=== PATIENT | female | born 1965 | race Caucasian/White ===

== ENCOUNTER 2021-03-22 19:46 | Inpatient (IN) | payer MEDICARE, SELFPAY ==
--- NOTE | 2021-03-22 19:52 | ECG_ITS ---
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 Measurements Intervals Douglas Rate: 95 P: 29 UT: 154 QRS: -3 QRSD: 89 T: 87 QT: 391 QTc: 493 Interpretive Statements SINUS RHYTHM POSSIBLE ANTERIOR MYOCARDIAL INFARCTION [30 ms Q WAVE IN V3/V4, OR R < 0.2 mV IN V4], PROBABLY OLD No previous ECG available for comparison Electronically Signed On 03-22-2021 21:33:58 CDT by Kirstie Mendoza M.D. [id number]
--- NOTE | 2021-03-22 19:52 | XRR_ITS ---
PROCEDURE INFORMATION: Exam: XR Chest Exam date and time: 03/22/2021 7:52 PM Age: 55 years old Clinical indication: Shortness of breath; Additional info: SOB TECHNIQUE: Imaging protocol: XR of the chest. Views: 1 view. COMPARISON: No relevant prior studies available. FINDINGS: Lungs: Patchy ground-glass opacities in both lungs. No focal consolidation. Pleural spaces: Unremarkable. No pleural effusion. No pneumothorax. Heart/Mediastinum: Unremarkable. No cardiomegaly. Bones/joints: Unremarkable. XR/XR chest 1V portable [id number] IMPRESSION: 1. Ground-glass opacities in both lungs could represent pulmonary edema or multilobar pneumonia.
[2021-03-22 19:55] VITALS: BP 164/102; PULSE 98; RESP 20; TEMP 36.6; O2SAT 95; BMI 35.2
--- NOTE | 2021-03-22 19:55 | W.ED.SOB ---
HPI - SOB/Dyspnea General: Chief Complaint: COVID symptoms Stated Complaint: SOB Time Seen by Provider: 03/22/21 19:51 Source: patient and EMS Mode of arrival: EMS Limitations: no limitations History of Present Illness: HPI Narrative: 55-year-old female with history of diabetes states she was diagnosed with Covid on Saturday. States she is feeling much worse today. States she has felt nauseous and weak and has had some vomiting. Patient called EMS due to shortness of breath. Her pulse ox was in the low 80s when they arrived they placed her on 3 L of oxygen. Her blood glucose is reading is high as well. She had fever and body aches and generalized weakness. Denies any worsening improving factors. Associated symptoms: Reports fever(s), nausea and vomiting; Deny chest pain Review of Systems Const: Reports: fever(s), chills, body aches and change in appetite Eyes: Denies: blurry vision or eye discomfort ENMT: Denies: throat pain or dental pain Card: Denies: chest pain Resp: Reports: dyspnea and non-productive cough GI: Reports: nausea and vomiting : Denies: dysuria Musc: Denies: neck pain or back pain Skin/Breast: Denies: rash Neuro: Denies: headache(s) Psych: Denies: depression Skyler/Lymph: Denies: easy bruising All/Imm: Denies: urticaria PFSH ED PFSH: Medical History (Updated 03/22/21 @ 21:41 by Palmira Frost MD) Diabetes GERD (gastroesophageal reflux disease) Hyperlipidemia Hypothyroidism Surgical History H/O esophagogastroduodenoscopy H/O removal of cyst H/O tubal ligation Hx of cholecystectomy Family History Grandmother Cancer Denies family history of Diabetes CAD (coronary artery disease) Anesthesia complication Bleeding disorder Hypertension Stroke Social History Smoking and tobacco status: never smoked Alcohol intake: never Household members: spouse Marital status: Current occupational status: disabled History of recent travel: Yes ([place]) Physical Exam Const: COMMON NORMALS: no acute distress and patient oriented x3 GENERAL APPEARANCE: ill appearing HENMT: COMMON NORMALS: normocephalic and atraumatic HEAD & SCALP: normocephalic and atraumatic Eye: COMMON NORMALS: Equal, round and reactive pupils present and EOMs intact bilaterally PUPIL: Yes Equal, round and reactive pupils present Neck/C-Spine: COMMON NORMALS: full ROM and supple Chest: COMMONS NORMALS: normal inspection of the chest and normal palpation of entire chest wall Resp: COMMON NORMALS: normal respiratory effort, No retractions, No use of accessory muscles and clear to auscultation bilaterally AUSCULTATION: clear to auscultation bilaterally and rales Cardio: COMMON NORMALS: regular rate, regular rhythm and No murmurs present (Cardio) RATE: regular rate RHYTHM: regular rhythm GI: COMMON NORMALS: Normal to inspection, nondistended, normoactive bowel sounds present, Soft to palpation, non-tender and no masses PALPATION: Yes Soft to palpation Extremity: COMMON NORMALS: normal to inspection and full ROM Neuro: COMMON NORMALS: patient oriented x3, moves all extremities and no focal motor deficits Psych: COMMON NORMALS: mental status grossly normal, Normal thought process present and cooperative THOUGHT PROCESS: Normal thought process present Skin: COMMON NORMALS: no rashes or lesions noted and no wounds GENERAL SKIN EXAM: no rashes or lesions noted Course Vital Signs: Vital signs: Vital Signs Temperature 97.8 F 03/22/21 19:55 Pulse Rate 91 03/22/21 21:25 Respiratory Rate 22 H 03/22/21 21:25 Blood Pressure 154/84 03/22/21 21:25 Pulse Oximetry 94 03/22/21 21:25 MDM - SOB/Dyspnea MDM Narrative: Medical decision making narrative: Patient presents here with COVID-19 pneumonia likely causing her hypoxia. Patient is also in DKA with an elevated blood sugar. Patient started on an insulin drip. Patient's doing well here on 3 L of oxygen. I spoke to the hospitalist will admit to the ICU at this time. Lab Data: Labs: Lab Results 03/22/21 03/22/21 03/22/21 Range/Units 19:02 19:02 19:02 WBC 8.4 (4.0-10.0) 10^3/ uL RBC 5.00 (4.1-5.3) 10^6/u L Hgb 13.7 (11.5-15.3) g/dL Hct 45.3 (37.0-47.0) % MCV 90.6 (81-99) fL MCH 27.4 L (28.0-34.0) pg MCHC 30.2 (30.0-36.0) g/dL RDW 14.8 (12.1-15.1) % Plt Count 546 H (130-400) 10^3/c mm MPV 10.4 (7.4-10.4) fL Neut % (Auto) 88.1 % Lymph % (Auto) 5.2 % Cooper % (Auto) 4.4 % Eos % (Auto) 0.0 % Baso % (Auto) 0.4 % Neut # (Auto) 7.44 (1.8-7.7) 10^3/u L Lymph # (Auto) 0.4 L (0.8-4.8) 10^3/u L Cooper # (Auto) 0.4 (0.2-0.9) 10^3/u L Eos # (Auto) 0.0 (0.0-0.8) 10^3/u L Baso # (Auto) 0.0 (0.0-0.1) 10^3/u L Nucleated RBC % (a uto) 0 % Nucleated RBCs # 0.0 /100WBC Specimen Type Sample Site ABG pH (7.35-7.45) ABG pCO2 (35-45) mmHg ABG pO2 (80.0-100.0) mmH g ABG HCO3 (22-26) mmol/L ABG Base Excess (-2.0-2.0) mmol/ L Smith Test Hematocrit (37-47) % O2 Delivery Device O2 Liters/Min % FiO2 % [employer] ID Sodium 135 L (136-145) mmol/L Potassium 5.1 (3.5-5.1) mmol/L Chloride 91 L (98-107) mmol/L Carbon Dioxide 21 L (22-29) mmol/L Anion Gap 28.1 H (5-19) BUN 42 H (6-20) mg/dL Creatinine 1.1 H (0.5-0.9) mg/dL GFR Calculation 51.8 L (90-130) mL/min Glucose 934 H* (65-115) mg/dL POC Glucose (70-110) mg/dL Calculated Osmolal ity 337 H (285-295) mOsm/k g Lactic Acid (0.5-2.2) mmol/L Calcium 9.1 (8.5-10.5) mg/dL Total Bilirubin 0.5 (0.15-1.2) mg/dL AST 11 (0-32) U/L ALT 13 (0-33) U/L Alkaline Phosphata se 115 H (35-105) IU/L C-Reactive Protein 74.8 H (0.0-4.9) mg/L NT-Pro-B Natriuret Pep 584 H (0-125) pg/mL Total Protein 7.8 (6.6-8.7) g/dL Albumin 2.7 L (3.5-5.2) g/dL Globulin 5.1 H (1.3-4.6) g/dL Serum Ketones Positive H (Negative) 03/22/21 03/22/21 03/22/21 Range/Units 20:05 20:05 20:29 WBC (4.0-10.0) 10^3/ uL RBC (4.1-5.3) 10^6/u L Hgb (11.5-15.3) g/dL Hct (37.0-47.0) % MCV (81-99) fL MCH (28.0-34.0) pg MCHC (30.0-36.0) g/dL RDW (12.1-15.1) % Plt Count (130-400) 10^3/c mm MPV (7.4-10.4) fL Neut % (Auto) % Lymph % (Auto) % Cooper % (Auto) % Eos % (Auto) % Baso % (Auto) % Neut # (Auto) (1.8-7.7) 10^3/u L Lymph # (Auto) (0.8-4.8) 10^3/u L Cooper # (Auto) (0.2-0.9) 10^3/u L Eos # (Auto) (0.0-0.8) 10^3/u L Baso # (Auto) (0.0-0.1) 10^3/u L Nucleated RBC % (a uto) % Nucleated RBCs # /100WBC Specimen Type Arterial Sample Site Radial, right ABG pH 7.37 (7.35-7.45) ABG pCO2 33.2 L (35-45) mmHg ABG pO2 74.4 L (80.0-100.0) mmH g ABG HCO3 19.3 L (22-26) mmol/L ABG Base Excess -5.0 L (-2.0-2.0) mmol/ L Smith Test Pos Hematocrit 40.8 (37-47) % O2 Delivery Device Nc O2 Liters/Min 4.0 % FiO2 36.0 % [employer] ID glc Sodium (136-145) mmol/L Potassium (3.5-5.1) mmol/L Chloride (98-107) mmol/L Carbon Dioxide (22-29) mmol/L Anion Gap (5-19) BUN (6-20) mg/dL Creatinine (0.5-0.9) mg/dL GFR Calculation (90-130) mL/min Glucose (65-115) mg/dL POC Glucose > 600 H* (70-110) mg/dL Calculated Osmolal ity (285-295) mOsm/k g Lactic Acid 2.9 H (0.5-2.2) mmol/L Calcium (8.5-10.5) mg/dL Total Bilirubin (0.15-1.2) mg/dL AST (0-32) U/L ALT (0-33) U/L Alkaline Phosphata se (35-105) IU/L C-Reactive Protein (0.0-4.9) mg/L NT-Pro-B Natriuret Pep (0-125) pg/mL Total Protein (6.6-8.7) g/dL Albumin (3.5-5.2) g/dL Globulin (1.3-4.6) g/dL Serum Ketones (Negative) Imaging Data^: CXR: Attestation: I personally reviewed and interpreted this imaging study as follows: Radiologist's impression: [address] [address] XRay Report Signed Patient: Tayler Ramires Unit #: [id number] : 1965 Age/Sex: 55 / F ADM Date: 03/22/21 Loc: ER Room/Bed: Attending Dr: Ordering Provider/Ordering MD: Palmira Frost MD Date of Service: 03/22/21 Procedure(s): XR chest 1V portable [id number] Accession Number(s): [id number] Report Number: [id number] PROCEDURE INFORMATION: Exam: XR Chest Exam date and time: 03/22/2021 7:52 PM Age: 55 years old Clinical indication: Shortness of breath; Additional info: SOB TECHNIQUE: Imaging protocol: XR of the chest. Views: 1 view. COMPARISON: No relevant prior studies available. FINDINGS: Lungs: Patchy ground-glass opacities in both lungs. No focal consolidation. Pleural spaces: Unremarkable. No pleural effusion. No pneumothorax. Heart/Mediastinum: Unremarkable. No cardiomegaly. Bones/joints: Unremarkable. XR/XR chest 1V portable [id number] IMPRESSION: 1. Ground-glass opacities in both lungs could represent pulmonary edema or multilobar pneumonia. Dictated By: Ricardo Carr Signed By: Ricardo Carr Signed Date/Time: 03/22/212117 EKG Data^: EKG 1: Attestation: I personally reviewed and interpreted this EKG as follows: EKG Interpretation Date: 03/22/21 EKG interpretation time: 20:12 Interpretation: nsr hr [address] or t wave abnormalities qrs 89 qtc 444 Critical Care Time Critical Care Time: Critical Care Time: Yes Total Critical Care Time: 36 Attestation: This case had a high probability of a clinically significant, sudden, or life threatening deterioration of this patient's condition which required my full and direct attention, intervention and personal management. Discharge Plan Discharge Patient Disposition: Admitted As Inpatient Clinical Impression: COVID-19, DKA (diabetic ketoacidoses) Condition: Stable Coding Level of Care Code ED Despatching And Receiving Clerk for Chg Fwd Exam Comprehensive
[2021-03-22] MEDS: dexamethasone 4 mg/mL INJ 10 MG IVP (20:02)
[2021-03-22 20:11] LABS: Glucose Point of Care > 600 mg/dL (70-110)
[2021-03-22 20:12] LABS: Basophils % 0.4 %; Hematocrit 45.3 % (37.0-47.0); Hemoglobin 13.7 g/dL (11.5-15.3); Lymphocytes # 0.4 10^3/uL (0.8-4.8); Lymphocytes % 5.2 %; Mean Corpuscular HGB Conc 30.2 g/dL (30.0-36.0); Mean Corpuscular Hemoglobin 27.4 pg (28.0-34.0); Mean Corpuscular Volume 90.6 fL (81-99); Mean Platelet Volume 10.4 fL (7.4-10.4); Monocytes # 0.4 10^3/uL (0.2-0.9); Monocytes % 4.4 %; Neutrophils # 7.44 10^3/uL (1.8-7.7); Neutrophils % 88.1 %; Nucleated Red Blood Cells % 0 %; Platelet Count 546 10^3/cmm (130-400); Red Cell Distribution Width 14.8 % (12.1-15.1); White Blood Count 8.4 10^3/uL (4.0-10.0)
[2021-03-22 20:21] VITALS: O2SAT 98
[2021-03-22] MEDS: insulin regular-human 100 units/1 mL 10 UNIT IVP (20:32)
[2021-03-22 20:35] LABS: Lactic Sepsis W/Reflex 2.9 mmol/L (0.5-2.2)
[2021-03-22 20:41] LABS: ABG PCO2 33.2 mmHg (35-45); ABG PH Result 7.37 (7.35-7.45); Arterial Blood Gas Hematocrit 40.8 % (37-47); Blood Gas Allen Test Pos; Blood Gas Operator Identificat glc; Blood Gas Sample Site Radial, right; Blood Gas Sample Type Arterial; HCO3 ABG 19.3 mmol/L (22-26); Oxygen Device NC; PO2 ABG 74.4 mmHg (80.0-100.0)
[2021-03-22 20:50] LABS: Alanine Aminotransferase 13 U/L (0-33); Albumin Level 2.7 g/dL (3.5-5.2); Alkaline Phosphatase 115 IU/L (35-105); Anion Gap 28.1 (5-19); Aspartate Amino Transferase 11 U/L (0-32); Blood Urea Nitrogen 42 mg/dL (6-20); C Reactive Protein 74.8 mg/L (0.0-4.9); Calcium 9.1 mg/dL (8.5-10.5); Carbon Dioxide 21 mmol/L (22-29); Chloride 91 mmol/L (98-107); Globulin 5.1 g/dL (1.3-4.6); Glomerular Filtration Rate 51.8 mL/min (90-130); NT Pro B Type Natriuretic Pept 584 pg/mL (0-125); Potassium 5.1 mmol/L (3.5-5.1); Sodium 135 mmol/L (136-145); Total Bilirubin 0.5 mg/dL (0.15-1.2); Total Protein 7.8 g/dL (6.6-8.7)
[2021-03-22 20:58] LABS: Osmolality Calculated 337 mOsm/kg (285-295)
[2021-03-22 21:01] LABS: Glucose 934 mg/dL (65-115)
[2021-03-22] MEDS: sodium chloride 0.9% 1,000 ML 999 ML IV (21:11)
[2021-03-22 21:13] LABS: Ketone (Acetest) Serum Positive (Negative)
[2021-03-22] MEDS: insulin regular-human 250 UNIT in sodium chloride 0.9% 250 ML 8 UNIT IV (21:13)
[2021-03-22 21:25] VITALS: BP 154/84; PULSE 91; RESP 22; O2SAT 94
--- NOTE | 2021-03-22 21:39 | PM.HP ---
Providers/Chief Complaint Admitting Physician: Noelle Fisher MD Chief Complaint: SOB History of Present Illness Tayler Ramires is a 55 year old female with a past medical history of diabetes mellitus, hyperlipidemia, hypothyroidism, and vaccinated for COVID-19 presents today with worsening shortness of breath after being diagnosed with Covid on Saturday. Results of Covid testing are not available directly for review as testing was performed with her primary care provider. Upon presentation she has a new oxygen requirement of 4 L/min. Chest x-ray showing bilateral pneumonitis. She is also noted to have HHS with blood sugar in excess of 900, positive anion gap, positive serum ketones. She is currently mentating well. ABG without metabolic acidosis at this time. Ros positive for fever, lethargy, myalgias. Denies any chest pain, palpitations at this time. Review of Systems General: Reports: 10 or more systems reviewed and unremarkable except in HPI and below Const: Reports: fever(s), chills and body aches Eyes: Denies: change in vision, blurry vision or photophobia ENMT: Denies: throat pain, enlarged tonsils, odynophagia or nasal congestion Card: Reports: dyspnea on exertion and orthopnea; Denies: chest pain, palpitations, irregular heart rhythm, edema, swelling of feet/ankles, lightheadedness or pre-syncope Resp: Reports: dyspnea and non-productive cough; Denies: wheezing, stridor, pain on inspiration, change in phlegm color, hemoptysis or chest congestion GI: Denies: abdominal pain, nausea, vomiting, hematemesis, coffee ground emesis, dysphagia, heartburn, diarrhea, constipation, GI cramping, change in stool character, hematochezia or melena : Denies: flank pain, difficulty voiding, dysuria, urinary frequency, urinary urgency, urinary hesitancy or hematuria Musc: Denies: neck pain, back pain, extremity pain, joint swelling, joint warmth or deformity Neuro: Denies: headache(s), numbness in extremities, weakness in extremities, sensory changes, difficulty walking, frequent falls, dizziness, vertigo, behavioral changes, Slurred speech present or seizure-like activity Psych: Denies: anxiety, depression, suicidal ideation or homicidal ideation Endo: Denies: polyuria, polydipsia, tired all the time, cold intolerance or hot flashes Skyler/Lymph: Denies: easy bruising or easy bleeding Medications/Allergies Home Medications Medication Instructions Recorded Confirmed Last Taken Type esomeprazole magnesium 40 mg 40 mg PO DAILY 03/22/20 03/22/21 Unknown History capsule,delayed release insulin aspar prt-insulin aspart 35 unit SUBCUT QAM ml 03/22/20 03/22/21 Unknown History 100 unit/mL (70-30) subcutaneous soln levothyroxine 25 mcg tablet 25 mcg PO DAILY 03/22/20 03/22/21 03/22/21 History lovastatin 10 mg tablet 10 mg PO DAILY 03/22/20 03/22/21 Unknown History glipizide 5 mg PO BID 03/22/21 03/22/21 03/22/21 History Allergies Allergy/AdvReac Type Severity Reaction Status Date / Time doxycycline Allergy ALGY-Rash Verified 04/12/20 15:03 PFSH Acute PFSH: Medical History (Updated 03/22/21 @ 21:58 by Noelle Fisher MD) Diabetes GERD (gastroesophageal reflux disease) Hyperlipidemia Hypothyroidism Surgical History H/O esophagogastroduodenoscopy H/O removal of cyst H/O tubal ligation Hx of cholecystectomy Family History Grandmother Cancer Denies family history of Diabetes CAD (coronary artery disease) Anesthesia complication Bleeding disorder Hypertension Stroke Social History Smoking and tobacco status: never smoked Alcohol intake: never Household members: spouse Marital status: Current occupational status: disabled History of recent travel: Yes ([place]) Vitals/I&O/Wt Last Vital Signs Temp 97.8 F 03/22/21 19:55 Pulse 91 03/22/21 21:25 Resp 22 H 03/22/21 21:25 BP 154/84 03/22/21 21:25 Pulse Ox 94 03/22/21 21:25 Weight last 48 hrs Weight 81.647 kg Physical Exam Narrative: EXAM NARRATIVE: GEN: Aake, alert and oriented, no acute distress HEENT: NC in place, NC/AT CVS: Normal S1-S2, no murmurs rubs or gallops. Respiratory system: Clear to auscultation bilaterally Abdominal exam soft nondistended nontender bowel sounds positive. Extremities no edema clubbing or cyanosis. Data : 03/22/21 19:02 03/22/21 19:02 Micro: Microbiology 03/22/21 20:20 Blood Culture - Preliminary Blood SPECIMEN COLLECTED 03/22/21 20:05 Blood Culture - Preliminary Blood SPECIMEN COLLECTED A&P Assessment and plan (1) COVID-19: COVID-19 pneumonia with bilateral pneumonitis as seen on chest x-ray Elevated CRP at 74.8. New oxygen requirement via nasal cannula at 4 L/min Start remdesivir, dexamethasone 6 mg IV every 24 hours Steroids likely to worsen HHS, however given moderate disease, new oxygen requirement and high likelihood of progression would continue steroids alongside of insulin drip. Check inflammatory markers including LDH ferritin D-dimer, trend CRP Supplemental O2 to keep saturation greater than 92% Advair twice daily, Spiriva daily, albuterol as needed Incentive spirometry, flutter valve encouraged Added Robitussin Tessalon Perles for cough Status: Acute (2) Hyperosmolar hyperglycemic state (HHS): Blood sugar greater than 900, anion gap 28, positive serum ketones, ABG without significant metabolic acidosis, overall picture consistent with HHS. Start insulin drip per DKA/HHS protocol in the ICU. Currently received 10 units of regular insulin IV push Potassium currently at 5.1, dropped to less than 5 we will add potassium to IV fluids Normal saline at 100 cc an hour for now, once blood sugar drops to less than 250 switch to D5 normal saline Status: Acute (3) Hypothyroidism: Continue levothyroxine 25 mics p.o. daily Status: Acute Qualifiers: Hypothyroidism type: unspecified Qualified Code(s): E03.9 - Hypothyroidism, unspecified (4) Hyperlipidemia: Continue statins Status: Acute Qualifiers: Hyperlipidemia type: unspecified Qualified Code(s): E78.5 - Hyperlipidemia, unspecified Additional A&P Information DVT prophylaxis Lovenox. SCDs Full code PUD prophylaxis Protonix 40 mg daily Attestations Medical Necessity Statement*: Greater than 2 midnight will be needed for management of COVID-19 pneumonia, HHS, patient currently needing ICU level of care, high risk of progression to severe disease. Critical Care Time: The high probability of a clinically significant, sudden or life threatening deterioration of the patient's [respiratory, endocrine] system(s) required my full and direct attention, intervention and personal management. The critical care time is as shown. This time is in addition to time spent performing any reported procedures but includes the following: [x] Data and vital sign review and interpretation [x] Patient assessment, examination and intervention [x] Documentation [x] Medication orders and management Critical Care Time (min): 60 Coding Level of Care Code Acute Press Supervisor for Chg Fwd Diagnoses COVID-19 U07.1 Hyperosmolar hyperglycemic state (HHS) E11.00; E11.65 Hypothyroidism E03.9 Hypothyroidism type: unspecified Hyperlipidemia E78.5 Hyperlipidemia type: unspecified
[2021-03-22 21:56] LABS: Reflex Lactate Order REFLEX LACTIC ORDERD
[2021-03-22 22:09] LABS: Lactate Dehydrogenase 451 U/L (135-214)
[2021-03-22 22:11] LABS: Estmated Average Glucose 326
[2021-03-22 22:20] LABS: D Dimer 1.36 ug/mIFEU (0-0.59)
[2021-03-22 22:23] LABS: Troponin T (5th) Once 16 ng/L (0-10)
[2021-03-22 22:24] LABS: Ferritin 2004 ng/mL (15-150)
[2021-03-22 22:28] LABS: Add Urine Culture? Yes; Add Urine Microscopic? YES; Bacteria Urine TRACE /hpf; Bilirubin Urine Neg (Negative); Blood Urine 3+ (Negative); Glucose Urine UA 4+ (Normal); Ketones Urine 1+ (Negative); Leukocyte Esterase Urine Negative (Negative); Nitrate Urine Negative (Negative); Protein Urine 1+ (Negative); RBC Urine 0-4 /hpf (0-2); Specific Gravity, Urine 1.005 (1.005-1.030); Urine Appearance Clear (CLEAR); Urine Color Yellow (Yellow); Urobilinogen Urine Norm (Negative); WBC Urine 0-4 /hpf (0-5); pH Urine 5 (5-7)
[2021-03-22 22:31] LABS: Procalcitonin 0.22 ng/mL (0-0.5)
[2021-03-22] MEDS: remdesivir 200 MG in sodium chloride 0.9% (100 ml) 100 ML 100 MG IV (22:46)
[2021-03-22 23:01] LABS: Lactic Acid level (Lactate) 2.3 mmol/L (0.5-2.2)
[2021-03-22 23:16] VITALS: BP 166/97; PULSE 91; RESP 19; O2SAT 96
[2021-03-22 23:35] LABS: Glucose Point of Care 528 mg/dL (70-110)
[2021-03-23] VITALS (30 sets, daily range): BP systolic 101–168; BP diastolic 53–106; PULSE 48–94; RESP 3–32; TEMP 36.8; O2SAT 89–99
[2021-03-23] MEDS: dexamethasone 4 mg/mL INJ 6 MG IVP (03:39)
[2021-03-23] MEDS: enoxaparin 40 mg/0.4 mL Syringe SUBCUT ×2 (03:39→12:24)
[2021-03-23] MEDS: cefTRIAXone 1,000 MG in sodium chloride 0.9% (plus) 100 ML 200 MG IV (03:39)
[2021-03-23] MEDS: sodium chloride 0.9% 1,000 ML 100 ML IV (03:41)
[2021-03-23 05:12] LABS: Basophils % 0.5 %; Hematocrit 38.9 % (37.0-47.0); Hemoglobin 12.1 g/dL (11.5-15.3); Lymphocytes # 0.3 10^3/uL (0.8-4.8); Lymphocytes % 4.5 %; Mean Corpuscular HGB Conc 31.1 g/dL (30.0-36.0); Mean Corpuscular Hemoglobin 27.7 pg (28.0-34.0); Mean Platelet Volume 10.8 fL (7.4-10.4); Monocytes # 0.2 10^3/uL (0.2-0.9); Monocytes % 2.1 %; Neutrophils # 7.01 10^3/uL (1.8-7.7); Neutrophils % 91.7 %; Nucleated Red Blood Cells % 0 %; Platelet Count 422 10^3/cmm (130-400); Red Blood Count 4.37 10^6/uL (4.1-5.3); Red Cell Distribution Width 14.6 % (12.1-15.1); White Blood Count 7.6 10^3/uL (4.0-10.0)
[2021-03-23 05:35] LABS: Lactic Sepsis W/Reflex 2.9 mmol/L (0.5-2.2)
[2021-03-23] MEDS: dextrose 5%-sod chloride 0.45% 1,000 ML 100 ML IV ×2 (06:04→14:46)
--- NOTE | 2021-03-23 06:48 | PC.NURSE ---
arrived on unit approximately 0200, no c/o, AO follows commands. Dr. Fisher gave v.o. to start D5 1/2 NS once glucose less than 250
--- NOTE | 2021-03-23 06:53 | PC.NURSE ---
This nurse called lab to ask about chemisty that was drawn by this nurse at approximately 0445, lab informed this nurse it was hemolyzed, this nurse informed lab they would need to draw
[2021-03-23 06:57] LABS: Reflex Lactate Order REFLEX LACTIC ORDERD
[2021-03-23] MEDS: ascorbic acid 500 mg Tablet PO ×2 (08:36→17:16)
[2021-03-23] MEDS: acetaminophen 325 mg Tablet 650 MG PO ×3 (08:36→21:07)
[2021-03-23] MEDS: atorvastatin 40 mg Tablet 20 MG PO (08:36)
[2021-03-23] MEDS: benzonatate 100 mg Capsule PO ×3 (08:36→21:07)
[2021-03-23] MEDS: levothyroxine 25 mcg Tablet PO (08:36)
[2021-03-23] MEDS: pantoprazole DR 40 mg Tablet PO (08:36)
[2021-03-23 09:04] LABS: Lactic Acid level (Lactate) 1.9 mmol/L (0.5-2.2)
[2021-03-23 09:05] LABS: Alanine Aminotransferase 10 U/L (0-33); Albumin Level 1.9 g/dL (3.5-5.2); Alkaline Phosphatase 87 IU/L (35-105); Aspartate Amino Transferase 10 U/L (0-32); Blood Urea Nitrogen 37 mg/dL (6-20); Calcium 8.1 mg/dL (8.5-10.5); Carbon Dioxide 24 mmol/L (22-29); Chloride 112 mmol/L (98-107); Globulin 4.4 g/dL (1.3-4.6); Glomerular Filtration Rate 87.2 mL/min (90-130); Glucose 162 mg/dL (65-115); Osmolality Calculated 314 mOsm/kg (285-295); Sodium 146 mmol/L (136-145); Total Bilirubin 0.2 mg/dL (0.15-1.2); Total Protein 6.3 g/dL (6.6-8.7)
[2021-03-23 09:06] LABS: Anion Gap 14.1 (5-19)
[2021-03-23 09:07] LABS: Potassium 4.1 mmol/L (3.5-5.1)
[2021-03-23 09:12] LABS: Glucose Point of Care 284 mg/dL (70-110)
[2021-03-23 09:12] LABS: Glucose Point of Care 323 mg/dL (70-110)
[2021-03-23 09:12] LABS: Glucose Point of Care 234 mg/dL (70-110)
[2021-03-23 09:12] LABS: Glucose Point of Care 387 mg/dL (70-110)
[2021-03-23 09:12] LABS: Glucose Point of Care 221 mg/dL (70-110)
[2021-03-23 09:13] LABS: Glucose Point of Care 162 mg/dL (70-110)
--- NOTE | 2021-03-23 09:17 | PC.CHAP ---
Pastoral Care Encounter/Spiritual Assessment Type of Contact [] Declined patient services assistant visit [] Patient/Family/Request visit [] Outpatient visit [] Follow-up visit [] Physician referral [] Code/Alert [x] Routine visit [] Staff referral [] Actively dying [] Patient sleeping [] Family support [] [] Out of room [] Palliative care [] [x] Receiving care in room [] Pre-surgical visit [] Trauma [] Long length of stay [x] ICU visit [] Other: Relational/Emotional Strength [] Patient feels connected with others/family/visitors/staff [] Distress [] Loneliness/isolation [] Abandonment Spirituality of Patient [] Person of Ashlee [] Attends Islam of their Ashlee [] Believes in Prayer [] Reads Bible or Episcopalian materials [] There are Spiritual issues to be addressed Pcu Rn Interventions [x] Prayer [] Active listening [] Non-anxious presence [] Spiritual/emotional support [] Crisis/trauma care [] Spiritual counseling [] Bereavement support [] Provided bereavement packet [] Provided Bible/devotional materials [] Provided toy/stuffed animal, coloring book to patient or family member [] Provided Communion [] Anointing/[place] [] Salvation [x] Completed spiritual assessment [] Other: Impact on Illness or Injury [] Angry [] Fearful [] Anxious [] Often cries [] Exhaustion [] Unable to work [] Unable to attend mormonism [] Unable to walk/stand [] Unable to read [] Unable to drive [] Unable to eat/drink [] Unable to sleep [] Unable to be with family [] Patient intubated [] Other: Summary Time spent with patient
--- NOTE | 2021-03-23 09:18 | USCV_ITS ---
Tayler Ramires Age: 55 Gender: F : 1965 Exam Date: 03/23/2021 12:26 Ordering Phys: Rik Hinkle MD Technologist: Exam Location: [facility] Indication: SOB, COVID BP: 138 / 77 HR: 81 Rhythm: Sinus Technical Quality: Adequate MEASUREMENTS (Male / Female) Normal Values 2D ECHO LV Diastolic Diameter PLAX 4.2 cm 4.2 - 5.9 / 3.9 - 5.3 cm LV Systolic Diameter PLAX 2.4 cm IVS Diastolic Thickness 1.0 cm 0.6 - 1.0 / 0.6 - 0.9 cm IVS Systolic Thickness 1.3 cm LVPW Diastolic Thickness 1.0 cm 0.6 - 1.0 / 0.6 - 0.9 cm LVPW Systolic Thickness 1.6 cm LVOT Diameter 2.0 cm LV Ejection Fraction 2D Teich 73.0 % LV Ejection Fraction MOD 2C 70.1 % LV Ejection Fraction 2C AL 70.5 % LA Diameter 3.3 cm LA Width 3.5 cm LA Height 5.0 cm RA Width 3.2 cm RA Height 5.2 cm Aorta at Sinotubular Diameter 1.9 cm DOPPLER AV Peak Velocity 155.0 cm/s LVOT Peak Velocity 97.0 cm/s AV Area Cont Eq vti 1.8 cm squared AV Area Cont Eq pk 1.9 cm squared MV Area PHT 5.0 cm squared Mitral E to A Ratio 1.1 MV E' Velocity 59.0 cm/s Mitral E to MV E' Ratio 14.4 Mitral E to LV E' Lateral Ratio 12.4 Mitral E to LV E' Septal Ratio 17.3 TR Peak Velocity 112.3 cm/s TR Peak Gradient 5.0 mmHg FINDINGS Left Ventricle Normal left ventricular cavity size. Normal left ventricular systolic function. No regional wall motion abnormalities. Left ventricular ejection fraction is estimated at 60 %. Grade I/IV diastolic dysfunction (abnormal relaxation filling pattern), normal to mildly elevated filling pressures. Right Ventricle The right ventricle is normal in size and function. RVSP could not be calculated due to incomplete tricuspid regurgitation velocity profile. Right Atrium The right atrium is normal in size. Left Atrium The left atrium is normal in size. Mitral Valve Structurally normal mitral valve without significant stenosis or prolapse. There is no mitral regurgitation. Aortic Valve Structurally normal aortic valve without significant sclerosis or stenosis. There is no aortic regurgitation. Tricuspid Valve Structurally normal tricuspid valve without significant stenosis or regurgitation. Pulmonic Valve Structurally normal pulmonic valve without significant stenosis. There is no pulmonic regurgitation. Pericardium Normal pericardium without effusion. Aorta Normal ascending aorta dimension. CONCLUSIONS 1-Normal left ventricular cavity size. Normal left ventricular systolic function. No regional wall motion abnormalities. Left ventricular ejection fraction is estimated at 60 %. Grade I/IV diastolic dysfunction (abnormal relaxation filling pattern), normal to mildly elevated filling pressures. 2-There is no pericardial effusion. 3-No significant valve abnormalities. 4-The right ventricle is normal in size and function. RVSP could not be calculated due to incomplete tricuspid regurgitation velocity profile. 5-There is no pericardial effusion. 6-Right atrial pressure is around 5 mm of mercury. 7-There are no prior echocardiogram studies to compare. Everardo Dasilva MD (Electronically Signed) Final Date: 23 March 2021 16:02 S
[2021-03-23 10:09] LABS: Glucose Point of Care 133 mg/dL (70-110)
[2021-03-23 10:09] LABS: Glucose Point of Care 147 mg/dL (70-110)
[2021-03-23 10:36] LABS: Iron 25 ug/dL (37-145); Total Iron Binding Capacity 104 mcg/dl; Unsaturated Iron Binding 79 ug/dL (112-347)
[2021-03-23 10:43] LABS: Procalcitonin 0.16 ng/mL (0-0.5)
[2021-03-23 10:44] LABS: C Reactive Protein 42.2 mg/L (0.0-4.9); Creatine Phosphokinase 55 U/L (26-192); Magnesium 2.3 mg/dL (1.7-2.3); Thyroid Stimulating Hormone 0.62 uIU/mL (0.27-4.20)
[2021-03-23 11:12] LABS: Ferritin 1270 ng/mL (15-150)
[2021-03-23 11:48] LABS: Potassium, Radom Urine 7 mmol/L
[2021-03-23 12:01] LABS: Glucose Point of Care 172 mg/dL (70-110)
[2021-03-23] MEDS: zinc gluconate 50 mg Tablet PO (12:06)
[2021-03-23] MEDS: ondansetron 2 mg/ML SDV 2 mL 4 MG IVP ×2 (12:06→17:42)
[2021-03-23 12:17] LABS: Glucose Point of Care 196 mg/dL (70-110)
[2021-03-23 12:21] LABS: Fibrinogen 692 mg/dL (174-498)
[2021-03-23 12:32] LABS: Urine Random Chloride < 10 mmol/L; Urine Random Sodium 12 mmol/L
[2021-03-23 12:34] LABS: Alanine Aminotransferase 8 U/L (0-33); Albumin Level 1.8 g/dL (3.5-5.2); Alkaline Phosphatase 72 IU/L (35-105); Aspartate Amino Transferase 9 U/L (0-32); Blood Urea Nitrogen 38 mg/dL (6-20); Calcium 7.8 mg/dL (8.5-10.5); Carbon Dioxide 23 mmol/L (22-29); Chloride 110 mmol/L (98-107); Glomerular Filtration Rate 87.2 mL/min (90-130); Glucose 207 mg/dL (65-115); Lactic Sepsis W/Reflex 1.3 mmol/L (0.5-2.2); Osmolality Calculated 313 mOsm/kg (285-295); Sodium 144 mmol/L (136-145); Total Bilirubin 0.2 mg/dL (0.15-1.2); Total Protein 5.8 g/dL (6.6-8.7)
[2021-03-23 13:57] LABS: Glucose Point of Care 238 mg/dL (70-110)
[2021-03-23 15:14] LABS: Glucose Point of Care 192 mg/dL (70-110)
[2021-03-23 15:14] LABS: Glucose Point of Care 213 mg/dL (70-110)
[2021-03-23 15:23] LABS: Alanine Aminotransferase 8 U/L (0-33); Albumin Level 1.6 g/dL (3.5-5.2); Alkaline Phosphatase 71 IU/L (35-105); Blood Urea Nitrogen 36 mg/dL (6-20); Calcium 7.4 mg/dL (8.5-10.5); Carbon Dioxide 19 mmol/L (22-29); Chloride 108 mmol/L (98-107); Globulin 4.1 g/dL (1.3-4.6); Glomerular Filtration Rate 74.7 mL/min (90-130); Glucose 229 mg/dL (65-115); Osmolality Calculated 302 mOsm/kg (285-295); Sodium 138 mmol/L (136-145); Total Bilirubin 0.2 mg/dL (0.15-1.2); Total Protein 5.7 g/dL (6.6-8.7)
[2021-03-23 15:28] LABS: Anion Gap 15.2 (5-19); Aspartate Amino Transferase 14 U/L (0-32); Potassium 4.2 mmol/L (3.5-5.1)
--- NOTE | 2021-03-23 15:38 | P.PN_ITS ---
Subjective Subjective: Interval history: Admitted overnight. H&P and labs appreciated. On examination patient lying comfortably in bed, drowsy, on 5 L oxygen supplementation saturating 96%. Has remained hemodynamically stable overnight. States KUB. N.p.o. for now. Last sodium levels on examination 146, blood glucose down to 170. Currently she is on D5 half NS 100 cc/h, insulin at 4. During the day BMP was monitored and sodium levels came down to 128. Insulin drip postop information sliding-scale. Carb consistent diet was started. Fluid was changed to half NS at 50 cc/h. Vitals/I&O/Wt Last Vital Signs Temp 98.3 F 03/23/21 12:00 Pulse 88 03/23/21 12:07 Resp 18 03/23/21 12:00 BP 118/88 03/23/21 12:00 Pulse Ox 96 03/23/21 12:00 03/23/21 03/23/21 03/23/21 06:59 14:59 22:59 Intake Total 442.367 / 4291.080 7014.317 / 1122.317 Balance 442.367 / 0889.013 8679.317 / 1122.317 Weight last 48 hrs Weight 81.647 kg Physical Exam Narrative: EXAM NARRATIVE: General: Drowsy, AO x3, no acute distress HEENT: NC in place, NC/AT CVS: Normal S1-S2, no murmurs rubs or gallops. Respiratory system: Bilateral normal vesicular breath sounds, occasional rhonchi present all over the lung matamoros Abdominal: Soft, nondistended, nontender,, no organomegaly, bowel sounds positive. Extremities no edema clubbing or cyanosis. Data : 03/23/21 05:00 03/23/21 14:35 Micro: Microbiology 03/23/21 04:55 MRSA Culture - Final Nose 03/22/21 20:12 Legionella Urinary Antigen - Final Urine,Voided 03/22/21 20:12 Bacterial Antigens - Final Urine Kidney 03/22/21 20:20 Blood Culture - Preliminary Blood SPECIMEN COLLECTED 03/22/21 20:05 Blood Culture - Preliminary Blood SPECIMEN COLLECTED A&P Assessment and plan (1) Hypoxia: Status: Acute (2) COVID-19: Status: Acute (3) Hyperosmolar hyperglycemic state (HHS): Status: Acute (4) Hypernatremia: Status: Acute (5) Hypothyroidism: Continue levothyroxine 25 mics p.o. daily Status: Acute Qualifiers: Hypothyroidism type: unspecified Qualified Code(s): E03.9 - Hypothyroidism, unspecified (6) Hyperlipidemia: Continue statins Status: Acute Qualifiers: Hyperlipidemia type: unspecified Qualified Code(s): E78.5 - Hyperlipidemia, unspecified Additional A&P Information Hypoxia secondary to COVID-19 pneumonia: Moderate disease. Oxygen supplementation keeping saturation over 90%. Remdesivir to finish 5-day course. Dexamethasone 6 mg IV daily. Advair, Spiriva. Vitamin C, zinc. Incentive spirometry, flutter valve for pulmonary toilet. Monitor inflammatory markers including LDH, ferritin, ESR, CRP, D-dimer. D-dimer elevated. No CTA. Start patient on full dose Lovenox 1 mg/kg body weight every 12 hourly as per creatinine clearance. Check procalcitonin, MRSA swab, urine Legionella, bacterial antigen. Low probability of superimposed bacterial infection for now. Continue with ceftriaxone started last night. Day 2 today. Hyperosmolar hyperglycemic state: Anion gap closed since last night. Most likely secondary to steroids. Resolved. Insulin sliding scale at high-dose protocol. Start patient on Lantus 35 units daily at home dose. Type 2 diabetes mellitus: Treatment as above. A1c 13. Patient will most likely need to be discharged on higher dose of Lantus. Hypernatremia: Most likely secondary to dehydration from hyperosmolar state. D5 half NS to half NS and sodium level came down to 138. Insulin drip stopped. Switch over to half NS at 50 cc/h. BMP every 4 hours for now. Continue other chronic medication including atorvastatin, levothyroxine, Protonix. Check iron panel, TSH. DVT prophylaxis full dose Lovenox Lovenox. SCDs Full code PUD prophylaxis Protonix 40 mg daily Attestations Medical Necessity Statement*: Requires further hospitalization for management of the COVID-19 pneumonia, hypernatremia, resolving hyperosmolar hyperglycemic state. Critical Care Time: The high probability of a clinically significant, sudden or life threatening deterioration of the patient's [endocrine, pulmonary] system(s) required my full and direct attention, intervention and personal management. The critical care time is as shown. 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
[2021-03-23 16:54] LABS: Glucose Point of Care 218 mg/dL (70-110)
[2021-03-23] MEDS: ferrous gluconate 324 mg Tablet PO (17:16)
[2021-03-23] MEDS: sodium chloride 0.45% 1,000 ML 50 ML IV (17:16)
[2021-03-23] MEDS: remdesivir 100 MG in sodium chloride 0.9% (100 ml) 100 ML IV (18:28)
[2021-03-23 20:04] LABS: Glucose Point of Care 263 mg/dL (70-110)
[2021-03-23 20:05] LABS: Alanine Aminotransferase 8 U/L (0-33); Albumin Level 1.9 g/dL (3.5-5.2); Alkaline Phosphatase 78 IU/L (35-105); Anion Gap 14.9 (5-19); Aspartate Amino Transferase 11 U/L (0-32); Blood Urea Nitrogen 36 mg/dL (6-20); Calcium 7.5 mg/dL (8.5-10.5); Carbon Dioxide 22 mmol/L (22-29); Chloride 105 mmol/L (98-107); Globulin 4.1 g/dL (1.3-4.6); Glomerular Filtration Rate 74.7 mL/min (90-130); Glucose 273 mg/dL (65-115); Osmolality Calculated 304 mOsm/kg (285-295); Potassium 3.9 mmol/L (3.5-5.1); Sodium 138 mmol/L (136-145); Total Bilirubin 0.3 mg/dL (0.15-1.2)
[2021-03-23] MEDS: enoxaparin 80 mg/0.8 mL Syringe SUBCUT (21:08)
[2021-03-23] MEDS: insulin glargine 100 units/1 mL 35 UNIT SUBCUT (21:08)
[2021-03-24] VITALS (24 sets, daily range): BP systolic 115–161; BP diastolic 59–99; PULSE 71–98; RESP 8–24; TEMP 36.4–36.9; O2SAT 92–99
[2021-03-24] MEDS: cefTRIAXone 1,000 MG in sodium chloride 0.9% (plus) 100 ML 200 MG IV (03:12)
[2021-03-24] MEDS: acetaminophen 325 mg Tablet 650 MG PO ×2 (03:12→08:16)
[2021-03-24] MEDS: dexamethasone 4 mg/mL INJ 6 MG IVP (03:22)
[2021-03-24] MEDS: ondansetron 2 mg/ML SDV 2 mL 4 MG IVP ×3 (03:22→18:35)
--- NOTE | 2021-03-24 06:00 | XR_ITS ---
WS: [id number] Portable AP semiupright chest, 03/24/2021 Clinical Data: covid Comparison: Portable chest, 03/22/2021. Findings: The bilateral patchy pulmonary opacities are not changed. The heart size remains the same. Monitor leads are on the chest wall. XR/XR chest 1V portable [id number] Impression: No change in bilateral pulmonary opacities.
[2021-03-24 06:47] LABS: Basophils % 0.4 %; Eosinophils % 0.2 %; Hematocrit 35.2 % (37.0-47.0); Hemoglobin 10.9 g/dL (11.5-15.3); Lymphocytes # 0.5 10^3/uL (0.8-4.8); Lymphocytes % 5.6 %; Mean Corpuscular Hemoglobin 27.1 pg (28.0-34.0); Mean Corpuscular Volume 87.6 fL (81-99); Mean Platelet Volume 9.8 fL (7.4-10.4); Monocytes # 0.3 10^3/uL (0.2-0.9); Monocytes % 3.5 %; Neutrophils % 89.3 %; Nucleated Red Blood Cells % 0 %; Platelet Count 324 10^3/cmm (130-400); Red Blood Count 4.02 10^6/uL (4.1-5.3); Red Cell Distribution Width 14.4 % (12.1-15.1)
[2021-03-24 07:15] LABS: Alanine Aminotransferase 8 U/L (0-33); Albumin Level 1.8 g/dL (3.5-5.2); Alkaline Phosphatase 89 IU/L (35-105); Anion Gap 10.7 (5-19); Aspartate Amino Transferase 10 U/L (0-32); Blood Urea Nitrogen 31 mg/dL (6-20); C Reactive Protein 19.3 mg/L (0.0-4.9); Calcium 7.5 mg/dL (8.5-10.5); Carbon Dioxide 26 mmol/L (22-29); Chloride 107 mmol/L (98-107); Creatine Phosphokinase 66 U/L (26-192); Globulin 3.8 g/dL (1.3-4.6); Glomerular Filtration Rate 74.7 mL/min (90-130); Glucose 200 mg/dL (65-115); NT Pro B Type Natriuretic Pept 390 pg/mL (0-125); Osmolality Calculated 302 mOsm/kg (285-295); Potassium 3.7 mmol/L (3.5-5.1); Sodium 140 mmol/L (136-145); Total Bilirubin 0.2 mg/dL (0.15-1.2); Total Protein 5.6 g/dL (6.6-8.7)
[2021-03-24 07:30] LABS: Erythrocyte Sedimentation Rate 97 mm/hr (0-15)
[2021-03-24 07:59] LABS: Ferritin 970 ng/mL (15-150)
[2021-03-24] MEDS: ferrous gluconate 324 mg Tablet PO ×2 (08:16→18:34)
[2021-03-24] MEDS: zinc gluconate 50 mg Tablet PO (08:16)
[2021-03-24] MEDS: pantoprazole DR 40 mg Tablet PO (08:16)
[2021-03-24] MEDS: ascorbic acid 500 mg Tablet PO (08:16)
[2021-03-24] MEDS: levothyroxine 25 mcg Tablet PO (08:17)
[2021-03-24] MEDS: atorvastatin 40 mg Tablet 20 MG PO (08:17)
[2021-03-24] MEDS: benzonatate 100 mg Capsule PO ×3 (08:17→21:09)
[2021-03-24] MEDS: enoxaparin 80 mg/0.8 mL Syringe SUBCUT ×2 (10:01→21:09)
[2021-03-24 11:12] LABS: Glucose Point of Care 276 mg/dL (70-110)
[2021-03-24] MEDS: insulin glargine 100 units/1 mL 25 UNIT SUBCUT ×2 (11:43→18:39)
--- NOTE | 2021-03-24 14:45 | P.PN_ITS ---
Subjective Subjective: Interval history: No acute events overnight. Patient has remained hemodynamically stable. Currently on examination on 4 L nasal cannula supplementation saturating 94%. Denies any nausea vomiting, headache. Sitting up in chair. Working with incentive spirometry and flutter valve though states not as well as he should be. Vitals/I&O/Wt Last Vital Signs Temp 98.4 F 03/24/21 12:00 Pulse 89 03/24/21 12:00 Resp 18 03/24/21 12:00 BP 143/99 03/24/21 12:00 Pulse Ox 94 03/24/21 12:00 03/23/21 03/24/21 03/24/21 22:59 06:59 14:59 Intake Total 300 / 1422.317 100 / 1522.317 0 / 0 Output Total 800 / 800 Balance 300 / 1422.317 100 / 1522.317 -800 / -800 Weight last 48 hrs Weight 81.647 kg Physical Exam Narrative: EXAM NARRATIVE: General: Drowsy, AO x3, no acute distress HEENT: NC in place, NC/AT CVS: Normal S1-S2, no murmurs rubs or gallops. Respiratory system: Bilateral normal vesicular breath sounds, occasional rhonchi present all over the lung matamoros Abdominal: Soft, nondistended, nontender,, no organomegaly, bowel sounds positive. Extremities no edema clubbing or cyanosis. Data : 03/24/21 05:54 03/24/21 05:54 Micro: Microbiology 03/22/21 20:12 Urine Culture - Preliminary Urine,Clean Catch Yeast 03/22/21 20:20 Blood Culture - Preliminary Blood NEGATIVE TO DATE 03/22/21 20:05 Blood Culture - Preliminary Blood NEGATIVE TO DATE 03/23/21 04:55 MRSA Culture - Final Nose 03/22/21 20:12 Legionella Urinary Antigen - Final Urine,Voided 03/22/21 20:12 Bacterial Antigens - Final Urine Kidney A&P Assessment and plan (1) Hypoxia: Status: Acute (2) COVID-19: Status: Acute (3) Hyperosmolar hyperglycemic state (HHS): Status: Acute (4) Hypernatremia: Status: Acute (5) Hypothyroidism: Continue levothyroxine 25 mics p.o. daily Status: Acute Qualifiers: Hypothyroidism type: unspecified Qualified Code(s): E03.9 - Hypothyroidism, unspecified (6) Hyperlipidemia: Continue statins Status: Acute Qualifiers: Hyperlipidemia type: unspecified Qualified Code(s): E78.5 - Hyperlipidemia, unspecified Additional A&P Information Hypoxia secondary to COVID-19 pneumonia: Moderate disease. Oxygen supplementation keeping saturation over 90%. Remdesivir to finish 5-day course. Dexamethasone 6 mg IV daily. Advair, Spiriva. Vitamin C, zinc. Incentive spirometry, flutter valve for pulmonary toilet. Prone to semiprone position when possible and laying in bed. Monitor inflammatory markers including LDH, ferritin, ESR, CRP, D-dimer. D-dimer elevated. Continue with 1 mg/kg body weight full dose Lovenox. Most likely patient will require 14 days of anticoagulation post discharge. MRSA positive, urine Legionella bacterial antigen negative. Low probability of superimposed bacterial infection for now. Continue with ceftriaxone started last night. Day 3/5 today. Hyperosmolar hyperglycemic state: Resolved. Anion gap closed since last night. Most likely secondary to steroids. Blood sugar still mildly elevated. Continue insulin sliding scale high-dose protocol. Increase Lantus to 25 units twice daily. Type 2 diabetes mellitus: Treatment as above. A1c 13. Patient will most likely need to be discharged on higher dose of Lantus. Hypernatremia: Resolved. Continue with half NS at 50 cc/h. Check BMP daily for now. Continue other chronic medication including atorvastatin, levothyroxine, Protonix. DVT prophylaxis full dose Lovenox, SCDs Full code PUD prophylaxis Protonix 40 mg daily Transfer out of ICU to [facility] and possible. Attestations Medical Necessity Statement*: Requires further hospitalization for management of COVID-19 pneumonia leading to hypoxia, difficult to control hyperglycemia in setting of resolving hyperosmolar hyperglycemic state. Time Spent in Patient Care: Greater than 35 minutes (>than 50% of time spent in counselling and/or direct pt care on unit) . 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
[2021-03-24] MEDS: fluconazole 100 mg Tablet PO (15:50)
[2021-03-24 17:31] LABS: Glucose Point of Care 246 mg/dL (70-110)
--- NOTE | 2021-03-24 17:41 | PC.NURSE ---
Pt to floor Phone report given to Seema [facility] for pt going to [phone]. Pt taken to second floor by wheelchair with oxygen at 3L NC. Pt ambulated from w/c to bed with standby assist. Verbal report given to Seema at bedside.
[2021-03-24] MEDS: sodium chloride 0.45% 1,000 ML 50 ML IV (18:26)
[2021-03-24] MEDS: remdesivir 100 MG in sodium chloride 0.9% (100 ml) 100 ML IV (18:30)
[2021-03-24 21:21] LABS: Glucose Point of Care 200 mg/dL (70-110)
[2021-03-25] VITALS (11 sets, daily range): BP systolic 129–156; BP diastolic 77–90; PULSE 66–86; RESP 16–19; TEMP 36.4–37.1; O2SAT 89–98
[2021-03-25] MEDS: ondansetron 2 mg/ML SDV 2 mL 4 MG IVP ×3 (01:03→18:43)
[2021-03-25 01:15] LABS: Glucose Point of Care 110 mg/dL (70-110)
[2021-03-25] MEDS: dexamethasone 4 mg/mL INJ 6 MG IVP (03:29)
[2021-03-25] MEDS: cefTRIAXone 1,000 MG in sodium chloride 0.9% (plus) 100 ML 200 MG IV (03:29)
[2021-03-25 06:16] LABS: Glucose Point of Care 97 mg/dL (70-110)
[2021-03-25 07:03] LABS: Basophils % 0.2 %; Eosinophils % 0.5 %; Hematocrit 34.6 % (37.0-47.0); Hemoglobin 10.9 g/dL (11.5-15.3); Lymphocytes # 0.5 10^3/uL (0.8-4.8); Mean Corpuscular HGB Conc 31.5 g/dL (30.0-36.0); Mean Corpuscular Hemoglobin 27.3 pg (28.0-34.0); Mean Corpuscular Volume 86.7 fL (81-99); Mean Platelet Volume 9.8 fL (7.4-10.4); Monocytes # 0.3 10^3/uL (0.2-0.9); Monocytes % 3.1 %; Neutrophils # 7.33 10^3/uL (1.8-7.7); Neutrophils % 88.7 %; Nucleated Red Blood Cells % 0 %; Platelet Count 287 10^3/cmm (130-400); Red Blood Count 3.99 10^6/uL (4.1-5.3); Red Cell Distribution Width 14.4 % (12.1-15.1); White Blood Count 8.3 10^3/uL (4.0-10.0)
[2021-03-25 07:14] LABS: D Dimer 0.98 ug/mIFEU (0-0.59)
[2021-03-25 07:37] LABS: Alanine Aminotransferase 7 U/L (0-33); Albumin Level 1.7 g/dL (3.5-5.2); Alkaline Phosphatase 78 IU/L (35-105); Anion Gap 11.6 (5-19); Aspartate Amino Transferase 11 U/L (0-32); Blood Urea Nitrogen 25 mg/dL (6-20); C Reactive Protein 30.7 mg/L (0.0-4.9); Calcium 7.7 mg/dL (8.5-10.5); Carbon Dioxide 27 mmol/L (22-29); Chloride 108 mmol/L (98-107); Creatine Phosphokinase 43 U/L (26-192); Ferritin 992 ng/mL (15-150); Globulin 3.9 g/dL (1.3-4.6); Glomerular Filtration Rate 74.7 mL/min (90-130); Glucose 96 mg/dL (65-115); NT Pro B Type Natriuretic Pept 385 pg/mL (0-125); Osmolality Calculated 300 mOsm/kg (285-295); Potassium 3.6 mmol/L (3.5-5.1); Sodium 143 mmol/L (136-145); Total Bilirubin 0.2 mg/dL (0.15-1.2); Total Protein 5.6 g/dL (6.6-8.7)
[2021-03-25 08:17] LABS: Erythrocyte Sedimentation Rate 99 mm/hr (0-15)
[2021-03-25] MEDS: zinc gluconate 50 mg Tablet PO (09:43)
[2021-03-25] MEDS: levothyroxine 25 mcg Tablet PO (09:43)
[2021-03-25] MEDS: ferrous gluconate 324 mg Tablet PO ×2 (09:43→18:45)
[2021-03-25] MEDS: fluconazole 100 mg Tablet PO (09:43)
[2021-03-25] MEDS: benzonatate 100 mg Capsule PO ×2 (09:43→16:50)
[2021-03-25] MEDS: atorvastatin 40 mg Tablet 20 MG PO (09:44)
[2021-03-25] MEDS: insulin glargine 100 units/1 mL 25 UNIT SUBCUT (09:44)
[2021-03-25] MEDS: enoxaparin 80 mg/0.8 mL Syringe SUBCUT ×2 (09:45→21:57)
[2021-03-25 11:14] LABS: Glucose Point of Care 203 mg/dL (70-110)
--- NOTE | 2021-03-25 11:29 | CTR_ITS ---
PROCEDURE INFORMATION: Exam: CTA Chest With Contrast Exam date and time: 03/25/2021 11:29 AM Age: 55 years old Clinical indication: Abnormal findings; Abnormal diagnostic tests; Elevated d-dimer; Patient HX: Covid+ w elev d-dimer; Additional info: Covid, R/O pe TECHNIQUE: Imaging protocol: Computed tomographic angiography of the chest with contrast. 3D rendering (Not supervised by radiologist): MIP and/or 3D reconstructed images were created by the technologist. Radiation optimization: All CT scans at this facility use at least one of these dose optimization techniques: automated exposure control; mA and/or kV adjustment per patient size (includes targeted exams where dose is matched to clinical indication); or iterative reconstruction. Contrast material: OMNI 350; Contrast volume: 59 ml; Contrast route: INTRAVENOUS (IV); COMPARISON: CR XR chest 1V portable [id number] 03/24/2021 6:20 AM RADIATION DOSE METRICS: Total DLP (mGy-cm): 478.35 FINDINGS: Pulmonary arteries: Normal. No pulmonary emboli. Aorta: Unremarkable. No aortic aneurysm. No aortic dissection. Lungs: Patchy bilateral airspace opacities likely reflecting an infectious process. Pleural spaces: Unremarkable. No pneumothorax. No pleural effusion. Heart: Unremarkable. No cardiomegaly. No pericardial effusion. Lymph nodes: Unremarkable. No enlarged lymph nodes. Gallbladder and bile ducts: Cholecystectomy. Bones/joints: Unremarkable. No acute fracture. Soft tissues: Unremarkable. CT/CT angio chest PE protcl [id number] IMPRESSION: 1. Negative for pulmonary embolus 2. Patchy bilateral airspace opacities likely reflecting an infectious process. 3. Cholecystectomy. Radiation Dose CTDIVOL = (mGy): DLP = 478.35 (mGy-cm)
--- NOTE | 2021-03-25 14:28 | PM.PN ---
Subjective Subjective: Interval history: No acute events overnight. Patient lying comfortably in bed. Not working well with incentive spirometry and flutter valve. We had a long talk about need for incentive spirometry and flutter valve regularly for now. Patient verbalizes understanding and states he will try to do more often now. Denies any headache, dizziness, chest pain. Had one episode of vomiting earlier today morning. Vitals/I&O/Wt Last Vital Signs Temp 97.8 F 03/25/21 11:00 Pulse 66 03/25/21 11:00 Resp 16 03/25/21 11:00 BP 156/86 03/25/21 11:00 Pulse Ox 93 03/25/21 11:00 03/24/21 03/25/21 03/25/21 22:59 06:59 14:59 Intake Total 200 / 1200 100 / 1300 1156.667 / 1156.667 Output Total 500 / 1300 Balance -300 / -100 100 / 0 1156.667 / 1156.667 Physical Exam Narrative: EXAM NARRATIVE: General: Drowsy, AO x3, no acute distress HEENT: NC in place, NC/AT CVS: Normal S1-S2, no murmurs rubs or gallops. Respiratory system: Bilateral normal vesicular breath sounds, occasional rhonchi present all over the lung matamoros Abdominal: Soft, nondistended, nontender,, no organomegaly, bowel sounds positive. Extremities no edema clubbing or cyanosis. Data : 03/25/21 06:21 03/25/21 06:21 Micro: Microbiology 03/22/21 20:12 Urine Culture - Preliminary Urine,Clean Catch Yeast A&P Assessment and plan (1) Hypoxia: Status: Acute (2) COVID-19: Status: Acute (3) Hyperosmolar hyperglycemic state (HHS): Status: Acute (4) Hypernatremia: Status: Acute (5) Hypothyroidism: Continue levothyroxine 25 mics p.o. daily Status: Acute Qualifiers: Hypothyroidism type: unspecified Qualified Code(s): E03.9 - Hypothyroidism, unspecified (6) Hyperlipidemia: Continue statins Status: Acute Qualifiers: Hyperlipidemia type: unspecified Qualified Code(s): E78.5 - Hyperlipidemia, unspecified Additional A&P Information Hypoxia secondary to COVID-19 pneumonia: Moderate disease. Oxygen supplementation keeping saturation over 90%. Remdesivir to finish 5-day course. Dexamethasone 6 mg IV daily. Advair, Spiriva. Vitamin C, zinc. Incentive spirometry, flutter valve for pulmonary toilet. Prone to semiprone position when possible and laying in bed. Monitor inflammatory markers including LDH, ferritin, ESR, CRP, D-dimer. D-dimer elevated. Continue with 1 mg/kg body weight full dose Lovenox. Most likely patient will require 14 days of anticoagulation post discharge. Check CTA to confirm for how long patient will need to be on anticoagulation. MRSA positive, urine Legionella bacterial antigen negative. Low probability of superimposed bacterial infection for now. Continue with ceftriaxone started last night. Day 4/5 today. Hyperosmolar hyperglycemic state: Resolved. Anion gap closed since last night. Most likely secondary to steroids. Blood sugar still mildly elevated. Continue insulin sliding scale high-dose protocol. Increase Lantus to 25 units twice daily. Type 2 diabetes mellitus: Treatment as above. A1c 13. Patient will most likely need to be discharged on higher dose of Lantus. Hypernatremia: Resolved. Continue with half NS at 50 cc/h. Check BMP daily for now. Continue other chronic medication including atorvastatin, levothyroxine, Protonix. DVT prophylaxis full dose Lovenox, SCDs Full code PUD prophylaxis Protonix 40 mg daily Attestations Medical Necessity Statement*: Requires further hospitalization for management of hypoxia from COVID-19 pneumonia, uncontrolled hyperglycemia Time Spent in Patient Care: Greater than 35 minutes (>than 50% of time spent in counselling and/or direct pt care on unit). 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
[2021-03-25 17:20] LABS: Glucose Point of Care 187 mg/dL (70-110)
[2021-03-25] MEDS: remdesivir 100 MG in sodium chloride 0.9% (100 ml) 100 ML IV (18:43)
[2021-03-25] MEDS: insulin glargine 100 units/1 mL 22 UNIT SUBCUT (18:46)
[2021-03-25] MEDS: iohexol 350 mg/mL 100 mL Btl IV (20:31)
[2021-03-25 21:46] LABS: Glucose Point of Care 245 mg/dL (70-110)
[2021-03-26] VITALS (11 sets, daily range): BP systolic 143–155; BP diastolic 63–90; PULSE 68–86; RESP 14–18; TEMP 36.6–36.8; O2SAT 93–98
[2021-03-26] MEDS: dexamethasone 4 mg/mL INJ 6 MG IVP (03:41)
[2021-03-26] MEDS: cefTRIAXone 1,000 MG in sodium chloride 0.9% (plus) 100 ML 200 MG IV (03:41)
[2021-03-26] MEDS: ondansetron 2 mg/ML SDV 2 mL 4 MG IVP ×3 (03:41→18:35)
[2021-03-26 05:31] LABS: Basophils % 0.5 %; Eosinophils # 0.1 10^3/uL (0.0-0.8); Eosinophils % 0.8 %; Hemoglobin 11.3 g/dL (11.5-15.3); Lymphocytes # 0.5 10^3/uL (0.8-4.8); Lymphocytes % 7.3 %; Mean Corpuscular HGB Conc 31.4 g/dL (30.0-36.0); Mean Corpuscular Hemoglobin 27.6 pg (28.0-34.0); Mean Corpuscular Volume 87.8 fL (81-99); Monocytes # 0.2 10^3/uL (0.2-0.9); Monocytes % 3.2 %; Neutrophils # 5.69 10^3/uL (1.8-7.7); Neutrophils % 85.9 %; Nucleated Red Blood Cells % 0 %; Platelet Count 285 10^3/cmm (130-400); Red Cell Distribution Width 14.6 % (12.1-15.1); White Blood Count 6.6 10^3/uL (4.0-10.0)
[2021-03-26 05:41] LABS: D Dimer 0.85 ug/mIFEU (0-0.59)
--- NOTE | 2021-03-26 06:00 | XRR_ITS ---
PROCEDURE INFORMATION: Exam: XR Chest Exam date and time: 03/26/2021 6:00 AM Age: 55 years old Clinical indication: Shortness of breath; Additional info: Covid TECHNIQUE: Imaging protocol: XR of the chest. Views: 1 view. COMPARISON: CR XR chest 1V portable [id number] 03/24/2021 6:20 AM FINDINGS: Lungs: Somewhat decreased bilateral mixed interstitial airspace infiltrates. Pleural spaces: Unremarkable. No pleural effusion. No pneumothorax. Heart/Mediastinum: Cardiomegaly. Bones/joints: Unremarkable. XR/XR chest 1V portable [id number] IMPRESSION: 1. Cardiomegaly. 2. Somewhat decreased bilateral mixed interstitial airspace infiltrates.
[2021-03-26 06:06] LABS: Alanine Aminotransferase 13 U/L (0-33); Alkaline Phosphatase 97 IU/L (35-105); Anion Gap 10.2 (5-19); Aspartate Amino Transferase 20 U/L (0-32); Blood Urea Nitrogen 23 mg/dL (6-20); C Reactive Protein 29.9 mg/L (0.0-4.9); Carbon Dioxide 29 mmol/L (22-29); Chloride 108 mmol/L (98-107); Creatine Phosphokinase 38 U/L (26-192); Ferritin 979 ng/mL (15-150); Globulin 3.6 g/dL (1.3-4.6); Glomerular Filtration Rate 87.2 mL/min (90-130); Glucose 105 mg/dL (65-115); NT Pro B Type Natriuretic Pept 409 pg/mL (0-125); Osmolality Calculated 302 mOsm/kg (285-295); Potassium 3.2 mmol/L (3.5-5.1); Sodium 144 mmol/L (136-145); Total Bilirubin 0.2 mg/dL (0.15-1.2); Total Protein 5.6 g/dL (6.6-8.7)
[2021-03-26 06:11] LABS: Erythrocyte Sedimentation Rate 95 mm/hr (0-15)
[2021-03-26 07:12] LABS: Glucose Point of Care 127 mg/dL (70-110)
[2021-03-26] MEDS: levothyroxine 25 mcg Tablet PO (09:09)
[2021-03-26] MEDS: insulin glargine 100 units/1 mL 22 UNIT SUBCUT ×2 (09:09→17:17)
[2021-03-26] MEDS: pantoprazole DR 40 mg Tablet PO (09:10)
[2021-03-26] MEDS: atorvastatin 40 mg Tablet 20 MG PO (09:10)
[2021-03-26] MEDS: benzonatate 100 mg Capsule PO ×2 (09:10→15:33)
[2021-03-26] MEDS: enoxaparin 80 mg/0.8 mL Syringe SUBCUT ×2 (09:10→20:49)
[2021-03-26] MEDS: fluconazole 100 mg Tablet PO (09:10)
[2021-03-26] MEDS: zinc gluconate 50 mg Tablet PO (09:10)
[2021-03-26] MEDS: ferrous gluconate 324 mg Tablet PO ×2 (09:10→17:18)
[2021-03-26] MEDS: albuterol 8 gm MDI 2 PUFF INHALATION (09:21)
[2021-03-26 10:59] LABS: Glucose Point of Care 252 mg/dL (70-110)
--- NOTE | 2021-03-26 12:55 | P.PN_ITS ---
Subjective Subjective: Interval history: No acute events overnight. Working well with incentive spirometry and flutter valve. Denies any nausea vomiting, headache. Feeling tired today. Appetite appropriate. We will plan to get out of bed to chair for longer today. Vitals/I&O/Wt Last Vital Signs Temp 98.1 F 03/26/21 12:00 Pulse 70 03/26/21 12:00 Resp 14 03/26/21 12:00 BP 154/79 03/26/21 12:00 Pulse Ox 97 03/26/21 12:00 03/25/21 03/26/21 03/26/21 22:59 06:59 14:59 Intake Total 220 / 1616.667 580 / 2196.667 240 / 240 Output Total Balance 220 / 1616.667 579 / 2195.667 240 / 240 Physical Exam Narrative: EXAM NARRATIVE: General: Drowsy, AO x3, no acute distress HEENT: NC in place, NC/AT CVS: Normal S1-S2, no murmurs rubs or gallops. Respiratory system: Bilateral normal vesicular breath sounds, occasional rhonchi present all over the lung matamoros Abdominal: Soft, nondistended, nontender,, no organomegaly, bowel sounds positive. Extremities no edema clubbing or cyanosis. Data : 03/26/21 04:39 03/26/21 04:39 Micro: Microbiology 03/22/21 20:12 Urine Culture - Final Urine,Clean Catch Lily albicans Strep agalactiae - (group b) A&P Assessment and plan (1) Hypoxia: Status: Acute (2) COVID-19: Status: Acute (3) Hyperosmolar hyperglycemic state (HHS): Status: Acute (4) Hypernatremia: Status: Acute (5) Hypothyroidism: Continue levothyroxine 25 mics p.o. daily Status: Acute Qualifiers: Hypothyroidism type: unspecified Qualified Code(s): E03.9 - Hypothyroidism, unspecified (6) Hyperlipidemia: Continue statins Status: Acute Qualifiers: Hyperlipidemia type: unspecified Qualified Code(s): E78.5 - Hyperlipidemia, unspecified Additional A&P Information Hypoxia secondary to COVID-19 pneumonia: Moderate disease. Oxygen supplementation keeping saturation over 90%. Remdesivir to finish 5-day course. Last dose today. Dexamethasone 6 mg IV daily. Advair, Spiriva. Vitamin C, zinc. Incentive spirometry, flutter valve for pulmonary toilet. Prone to semiprone position when possible and laying in bed. Monitor inflammatory markers including LDH, ferritin, ESR, CRP, D-dimer. D-dimer elevated. Continue with 1 mg/kg body weight full dose Lovenox. Most likely patient will require 14 days of anticoagulation post discharge. Check CTA to confirm for how long patient will need to be on anticoagulation. MRSA positive, urine Legionella bacterial antigen negative. Low probability of superimposed bacterial infection for now. Continue with ceftriaxone started last night. Day 4/5 today. Urine cultures growing Lily and strep. Ceftriaxone will cover for strep. Started on fluconazole for Lily. Will most likely need fluconazole for 7 more days. Hyperosmolar hyperglycemic state: Resolved. Anion gap closed since last night. Most likely secondary to steroids. Blood sugar better controlled. Continue with Lantus 20 units twice daily, insulin sliding scale high-dose protocol. Type 2 diabetes mellitus: Treatment as above. A1c 13. Patient will most likely need to be discharged on higher dose of Lantus. Hypernatremia: Resolved. Continue with half NS at 50 cc/h. Check BMP daily for now. Continue other chronic medication including atorvastatin, levothyroxine, Protonix. DVT prophylaxis full dose Lovenox, SCDs Full code PUD prophylaxis Protonix 40 mg daily Attestations Medical Necessity Statement*: Requires further hospitalization for management of COVID-19 pneumonia, hyper glycemia requiring insulin changes. Time Spent in Patient Care: Greater than 35 minutes (>than 50% of time spent in counselling and/or direct pt care on unit) . Coding Level of Care Code Acute Director Check for [facility] Fwd Diagnoses Hypoxia R09.02 COVID-19 U07.1 Hyperosmolar hyperglycemic state (HHS) E11.00; E11.65 Hypernatremia E87.0 Hypothyroidism E03.9 Hypothyroidism type: unspecified Hyperlipidemia E78.5 Hyperlipidemia type: unspecified
--- NOTE | 2021-03-26 14:26 | PC.SOCIAL ---
Pg 2 IMM Explained to pt, via phone, on Pg 2 IMM. No questions voiced. Provided pt a copy. Initialed, dated, & timed a copy & placed in chart.
[2021-03-26 16:52] LABS: Glucose Point of Care 318 mg/dL (70-110)
[2021-03-26] MEDS: remdesivir 100 MG in sodium chloride 0.9% (100 ml) 100 ML IV (17:18)
[2021-03-26 22:11] LABS: Glucose Point of Care 234 mg/dL (70-110)
[2021-03-27] VITALS (8 sets, daily range): BP systolic 145–149; BP diastolic 76–86; PULSE 70–81; RESP 16–19; TEMP 36.6–36.8; O2SAT 86–97
[2021-03-27] MEDS: dexamethasone 4 mg/mL INJ 6 MG IVP (02:47)
[2021-03-27] MEDS: ondansetron 2 mg/ML SDV 2 mL 4 MG IVP ×2 (02:47→13:35)
[2021-03-27] MEDS: cefTRIAXone 1,000 MG in sodium chloride 0.9% (plus) 100 ML 200 MG IV (02:48)
[2021-03-27 06:46] LABS: Basophils % 0.4 %; Eosinophils % 0.5 %; Hematocrit 36.5 % (37.0-47.0); Hemoglobin 11.5 g/dL (11.5-15.3); Lymphocytes # 0.4 10^3/uL (0.8-4.8); Mean Corpuscular HGB Conc 31.5 g/dL (30.0-36.0); Mean Corpuscular Hemoglobin 27.4 pg (28.0-34.0); Mean Corpuscular Volume 87.1 fL (81-99); Mean Platelet Volume 10.4 fL (7.4-10.4); Monocytes # 0.2 10^3/uL (0.2-0.9); Monocytes % 2.3 %; Neutrophils # 6.76 10^3/uL (1.8-7.7); Neutrophils % 87.5 %; Nucleated Red Blood Cells % 0 %; Platelet Count 294 10^3/cmm (130-400); Red Blood Count 4.19 10^6/uL (4.1-5.3); Red Cell Distribution Width 14.4 % (12.1-15.1); White Blood Count 7.7 10^3/uL (4.0-10.0)
[2021-03-27 07:15] LABS: Alanine Aminotransferase 20 U/L (0-33); Alkaline Phosphatase 130 IU/L (35-105); Anion Gap 12.1 (5-19); Aspartate Amino Transferase 36 U/L (0-32); Blood Urea Nitrogen 24 mg/dL (6-20); C Reactive Protein 13.2 mg/L (0.0-4.9); Calcium 8.1 mg/dL (8.5-10.5); Carbon Dioxide 28 mmol/L (22-29); Chloride 107 mmol/L (98-107); Globulin 3.6 g/dL (1.3-4.6); Glomerular Filtration Rate 87.2 mL/min (90-130); Glucose 187 mg/dL (65-115); Osmolality Calculated 305 mOsm/kg (285-295); Potassium 4.1 mmol/L (3.5-5.1); Sodium 143 mmol/L (136-145); Total Bilirubin 0.2 mg/dL (0.15-1.2); Total Protein 5.6 g/dL (6.6-8.7)
[2021-03-27 07:22] LABS: Glucose Point of Care 189 mg/dL (70-110)
[2021-03-27] MEDS: insulin glargine 100 units/1 mL 22 UNIT SUBCUT (09:27)
[2021-03-27 09:28] LABS: Erythrocyte Sedimentation Rate 108 mm/hr (0-15)
[2021-03-27] MEDS: levothyroxine 25 mcg Tablet PO (09:28)
[2021-03-27] MEDS: pantoprazole DR 40 mg Tablet PO (09:28)
[2021-03-27] MEDS: ferrous gluconate 324 mg Tablet PO (09:28)
[2021-03-27] MEDS: fluconazole 100 mg Tablet PO (09:28)
[2021-03-27] MEDS: atorvastatin 40 mg Tablet 20 MG PO (09:28)
[2021-03-27] MEDS: benzonatate 100 mg Capsule PO (09:28)
[2021-03-27] MEDS: enoxaparin 80 mg/0.8 mL Syringe SUBCUT (09:30)
[2021-03-27 10:06] LABS: Ferritin 987 ng/mL (15-150)
[2021-03-27 12:01] LABS: Glucose Point of Care 302 mg/dL (70-110)
[2021-03-27 12:01] LABS: Glucose Point of Care 296 mg/dL (70-110)
--- NOTE | 2021-03-27 16:12 | P.DS_ITS ---
Discharge Providers Date of Admission: 03/23/21 00:07 Date of Discharge: March 27, 2021 Attending Provider at Admission: Noelle Fisher MD Attending Provider at Discharge: Preston Sandoval Diagnoses at Discharge Discharge Diagnosis (1) Hypoxia: Status: Acute (2) COVID-19: Status: Acute (3) Hyperosmolar hyperglycemic state (HHS): Status: Acute (4) Hypernatremia: Status: Acute (5) Hypothyroidism: Status: Acute Qualifiers: Hypothyroidism type: unspecified Qualified Code(s): E03.9 - Hypothyroidism, unspecified (6) Hyperlipidemia: Status: Acute Qualifiers: Hyperlipidemia type: unspecified Qualified Code(s): E78.5 - Hyperlipidemia, unspecified Reason for Visit Reason for Visit: SOB Hospital Course Hospital Course Pleasant 55-year-old lady with history of DM 2, HLD, hypothyroidism, GERD was admitted for assessment management after presenting with shortness of breath, found to have severe COVID-19 pneumonia, received treatment with remdesivir, Decadron, oxygen support, empirically on antibiotic treatment with Rocephin also for UTI, subsequently growing Lily and low amount of time-20,000 CFU group B strep, possibly contaminant, due to which Diflucan was added subsequently as well. At presentation with noted HHS and DKA, severe hyperglycemia, glucose 900s, with increased anion gap, positive serum ketones, dehydration, mild acute kidney injury creatinine 1.1, was treated with insulin drip subsequently, hydration, transitioned to subcutaneous insulin with 22 units Lantus and short acting sliding scale currently. Hypernatremia resolved. ADNA resolved. Currently glucose well controlled. Her condition overall continue to gradually improve. With elevated D-dimer she underwent additional assessment by CTA which did not show PE. Showed patchy bilateral airspace opacities secondary to COVID- 19. Oxygenation and oxygen requirement gradually improving, today down to 2 L nasal cannula, qualifying for 2 L cannula oxygen on home O2 evaluation. She is completed course of remdesivir, Decadron. Given continued gradual improvement, she is also been doing some ambulation in her room, she is cautiously discharged home. Per discussion she is aware to seek medical attention in case of any worsening of her condition or any concerning symptoms. Discussed DVT prophylaxis, we are not aware of press posing risk factors for VTE, she is usually also ambulatory, and her D-dimers came down to less than 2 times normal, and as such she elects not to proceed with any additional VT prophylaxis at discharge. As her liver parameters are noted slightly elevated, AST 36, alk phos 130, suspected secondary to COVID-19, please reassess liver parameters at next visit. At discharge her insulin regimen is uptitrated according to the current regimen in the hospital as above. Please reassess her diabetes control at subsequent visits. A1c is noted 13. Continue chronic follow-up with regards to diabetes. Continue to optimize risk factors of coronary disease including hypertension, obesity among others. Consider addition of YAAKOV inhibitor or ARB once renal f unction found stable, which could possibly replace the amlodipine which is added for now. Physical Exam Const: COMMON NORMALS: no acute distress and patient oriented x3 HENMT: COMMON NORMALS: oropharynx normal Neck/C-Spine: COMMON NORMALS: no JVD Resp: COMMON NORMALS: normal respiratory effort and clear to auscultation bilaterally AUSCULTATION: clear to auscultation bilaterally Cardio: COMMON NORMALS: no JVD, regular rhythm, S1 normal heart sound present, S2 normal heart sound present and No murmurs present (Cardio) RHYTHM: regular rhythm HEART SOUNDS: S1 normal heart sound present and S2 normal heart sound present GI: COMMON NORMALS: Normal to inspection, nondistended, normoactive bowel sounds present, Soft to palpation and non-tender PALPATION: Yes Soft to palpation Extremity: COMMON NORMALS: no joint enlargement and no pedal edema Neuro: COMMON NORMALS: patient oriented x3 and moves all extremities Skin: COMMON NORMALS: no rashes or lesions noted GENERAL SKIN EXAM: no rashes or lesions noted Discharge Data Data Completed and Pending: Completed Studies During Hospitalization Category Date Time Status CT angio chest PE protcl [id number] Rout ine Cat Scan 03/25/21 11:29 Completed XR chest 1V rk ble [id number] Q48H Exams 03/24/21 06:00 Completed XR chest 1V rk ble 04171 Q48H Exams 03/26/21 06:00 Completed XR chest 1V rk ble [id number] Stat Exams 03/22/21 19:52 Completed CV. echo complete * [id number] Routine Ultrasound 03/23/21 09:18 Completed Pending at discharge Category Date Time Status XR chest 1V rk ble 32030 Q48H Exams 03/28/21 06:00 Ordered Blood Culture Sta t Lab 03/22/21 20:20 Results C Reactive Protei n AM LABS Lab 03/28/21 04:00 Ordered C Reactive Protei n AM LABS Lab 03/29/21 04:00 Ordered Erythrocyte Sedim entation Rate AM L ABS Lab 03/28/21 04:00 Ordered Erythrocyte Sedim entation Rate AM L ABS Lab 03/29/21 04:00 Ordered Ferritin AM LABS Lab 03/28/21 04:00 Ordered Ferritin AM LABS Lab 03/29/21 04:00 Ordered Sputum Culture an d Gram Stain Stat Lab 03/23/21 09:17 Ordered Labs from last 24 hours 03/27/21 03/27/21 03/27/21 11:23 11:22 06:18 WBC RBC Hgb Hct MCV MCH MCHC RDW Plt Count MPV Neut % (Auto) Lymph % (Auto) [place] % (Auto) Eos % (Auto) Baso % (Auto) Neut # (Auto) Lymph # (Auto) [place] # (Auto) Eos # (Auto) Baso # (Auto) Nucleated RBC % (a uto) Nucleated RBCs # ESR Sodium Potassium Chloride Carbon Dioxide Anion Gap BUN Creatinine GFR Calculation Glucose POC Glucose 296 H 302 H 189 H Calculated Osmolal ity Calcium Ferritin Total Bilirubin AST ALT Alkaline Phosphata se C-Reactive Protein Total Protein Albumin Globulin 03/27/21 03/27/21 03/27/21 05:37 05:37 05:37 WBC 7.7 RBC 4.19 Hgb 11.5 Hct 36.5 L MCV 87.1 MCH 27.4 L MCHC 31.5 RDW 14.4 Plt Count 294 MPV 10.4 Neut % (Auto) 87.5 Lymph % (Auto) 5.0 [place] % (Auto) 2.3 Eos % (Auto) 0.5 Baso % (Auto) 0.4 Neut # (Auto) 6.76 Lymph # (Auto) 0.4 L [place] # (Auto) 0.2 Eos # (Auto) 0.0 Baso # (Auto) 0.0 Nucleated RBC % (a uto) 0 Nucleated RBCs # 0.0 ESR 108 H Sodium 143 Potassium 4.1 Chloride 107 Carbon Dioxide 28 Anion Gap 12.1 BUN 24 H Creatinine 0.7 GFR Calculation 87.2 L Glucose 187 H POC Glucose Calculated Osmolal ity 305 H Calcium 8.1 L Ferritin 987 H Total Bilirubin 0.2 AST 36 H ALT 20 Alkaline Phosphata se 130 H C-Reactive Protein 13.2 H Total Protein 5.6 L Albumin 2.0 L Globulin 3.6 03/26/21 03/26/21 20:08 16:45 WBC RBC Hgb Hct MCV MCH MCHC RDW Plt Count MPV Neut % (Auto) Lymph % (Auto) [place] % (Auto) Eos % (Auto) Baso % (Auto) Neut # (Auto) Lymph # (Auto) [place] # (Auto) Eos # (Auto) Baso # (Auto) Nucleated RBC % (a uto) Nucleated RBCs # ESR Sodium Potassium Chloride Carbon Dioxide Anion Gap BUN Creatinine GFR Calculation Glucose POC Glucose 234 H 318 H Calculated Osmolal ity Calcium Ferritin Total Bilirubin AST ALT Alkaline Phosphata se C-Reactive Protein Total Protein Albumin Globulin Vitals: Last Vital Signs Temp 98.1 F 03/27/21 12:00 Pulse 81 03/27/21 12:00 Resp 19 H 03/27/21 12:00 BP 148/86 03/27/21 12:00 Pulse Ox 91 03/27/21 12:59 Discharge Plan Discharge Patient Disposition: Home Condition: Stable Prescriptions: New (DME) diabetic supplies, miscellan. Misc See Rx Instructions .Route Qty: 1 RF: 0 benzonatate 100 mg Capsule 100 mg PO TID PRN (Reason: Cough) Qty: 30 RF: 3 albuterol sulfate [Ventolin HFA] 90 mcg/actuation Hfa Aerosol Inhaler 2 puff inhalation Q4H.RESPIRATORY PRN (Reason: Shortness Of Breath) Qty: 6.7 RF: 0 fluconazole 100 mg Tablet 100 mg PO DAILY Qty: 10 RF: 0 insulin aspart U-100 [Novolog U-100 Insulin aspart] 100 unit/mL Solution See Rx Instructions .ROUTE .COMPLEX PRN (Reason: Hyperglycemia) Qty: 10 RF: 3 Lantus U-100 Insulin 100 unit/mL Solution 22 unit SUBCUT BIDPC Qty: 10 RF: 3 ondansetron 4 mg tablet,disintegrating 4 mg PO Q8H PRN (Reason: nausea and vomiting) 5 Days Qty: 15 RF: 0 amlodipine 5 mg tablet 5 mg PO DAILY Qty: 30 RF: 0 Continued lovastatin 10 mg tablet 10 mg PO DAILY RF: 0 esomeprazole magnesium [Nexium] 40 mg capsule,delayed release(DR/EC) 40 mg PO DAILY RF: 0 levothyroxine 25 mcg tablet 25 mcg PO DAILY RF: 0 Discontinued insulin asp prt-insulin aspart [Novolog Mix 70-30 U-100 Insuln] 100 unit/mL (70-30) solution 35 unit SUBCUT QAM RF: 0 glipizide 5 mg tablet 5 mg PO BID RF: 0 Discharge Orders: Discharge Order (Routine); Ordered 03/27/21 Ordered By: Preston Sandoval Other Ambulatory Orders: DME: Oxygen (Order) Location: None Selected Ordered By: Preston Sandoval Referrals: Mo Tovar MD [Family Provider] - 1 week Discharge Diet: Diabetic Discharge Activity: Increase activity as tolerated and Oxygen as instructed Patient Instructions: Diabetes and Diet, Fluconazole (By mouth), Amlodipine (By mouth), Insulin Aspart, Recombinant (Injection), Insulin Glargine (Injection), Viral Pneumonia (GEN), Diabetes Mellitus Type 2 in Adults (GEN), Giving an Insulin Injection (GEN), Using Oxygen at Home (GEN), Hyperosmolar Hyperglycemic State (GEN), Hypoxia (GEN), Yeast Infection Activity Restrictions/Additional Instructions: As discussed please remember about possible fluctuation in clinical course with COVID-19 viral pneumonia. In case you experience any worsening shortness of breath, chest pain, any fainting episode, or any other concerning symptoms seek medical attention without delay. Please monitor oxygenation at home, target oxygen saturation above 90-92%. Oxygen saturation may decrease with exertion. If persistently below 90% or definitely if lower than 88%, increase oxygen flow, recheck. Oxygen saturation should improve with rest. In case oxygen saturation is not improving despite increasing oxygen flow and rest, seek medical attention. Please continue insulin therapy with long-acting insulin 22 units Lantus twice daily, as well as sliding scale insulin with meals and at bedtime depending on glucose levels as outlined in the prescription. Please follow-up with your primary doctor to manage diabetes and for chronic follow-up of multiple possible complications with diabetes, including high care, foot care, monitoring of renal function. Optimization of risk factors of coronary arterial disease. Monitor your blood glucose closely 4 times a day, avoid hypoglycemia. If you notice your blood glucose is lower than 70, do not take subsequent dose of insulin, take sugary snacks, recheck in 15-20 minutes. If not increasing, take further sugary snacks and call 911. In case sugars improving, contact your primary care doctor's office to help you decrease insulin dose. As a general rule in case of low blood glucose, decrease subsequent insulin dose by at least 1/3-1/2. Then increase again gradually by 2-3 units per 24 hours in case blood glucose again becomes elevated. Please note Diflucan is prescribed due to yeast urinary tract infection to complete additional 10 days of therapy for total of 14 days. Please follow-up with your primary care doctor for reassessment. Please have your primary doctor monitor your kidney function. Discharge Attestations Time Spent in Discharge Care*: greater than 30 min Quality Metrics Clinical Quality Measures During this hospital stay, did patient experience: None Coding Level of Care Code Acute [facility] [place] note Diagnoses Hypoxia R09.02 COVID-19 U07.1 Hyperosmolar hyperglycemic state (HHS) E11.00; E11.65 Hypernatremia E87.0 Hypothyroidism E03.9 Hypothyroidism type: unspecified Hyperlipidemia E78.5 Hyperlipidemia type: unspecified
[2021-03-27 17:29] LABS: Glucose Point of Care 227 mg/dL (70-110)
--- NOTE | 2021-03-28 14:38 | PC.SOCIAL ---
Clarified with pharmacy that blood sugar is checked 4 times a day. Has sliding scale and Lantus
== END 2021-03-27 19:00 | disposition home or self-care (01) | DRG 177 ==
LOC: ER 21:41 → ICU 03-23 00:07 → MEDSURG 03-24 17:15
PROVIDERS: Student in an Organized Health Care Education/Training Program; Admitting Provider Student in an Organized Health Care Education/Training Program; Emergency Provider Emergency Medicine; Family Provider Family Medicine; Visit Provider Internal Medicine
DX: U07.1 COVID-19 (principal); E11.10 Type 2 diabetes mellitus with ketoacidosis without coma; J12.82 Pneumonia due to coronavirus disease 2019; E87.0 Hyperosmolality and hypernatremia; N39.0 Urinary tract infection, site not specified; N17.9 Acute kidney failure, unspecified; E78.5 Hyperlipidemia, unspecified; E03.9 Hypothyroidism, unspecified; K21.9 Gastro-esophageal reflux disease without esophagitis; E86.0 Dehydration; B95.62 Methicillin resistant Staphylococcus aureus infection as the cause of diseases classified elsewhere; B37.9 Candidiasis, unspecified
CPT/HCPCS: 36415; 36416; 36600; 71045; 71275; 80053; 81001; 82009; 82436; 82550; 82728; 82803; 82962; 83036; 83540; 83550; 83605; 83615; 83735; 83880; 84133; 84145; 84300; 84443; 84484; 85025; 85378; 85384; 85651; 86140; 86403; 87040; 87086; 87106; 87449; 87641; 93005; 93306; 94640; 94664; 96365; 96372; 96375; 99291; J0696; J1100; J1650; J1815 ×2; J2405; J7030; J7050; J7799; Q9967

== ENCOUNTER → 2021-10-03 16:03 | Outpatient (BNVA) | payer MEDICARE, SELFPAY | PROVIDERS: Family Provider Family Medicine; Visit Provider Nurse Practitioner Family | DX: R05.9 Cough, unspecified (principal); Z20.822 Contact with and (suspected) exposure to COVID-19 | CPT/HCPCS: 87635 ==

== ENCOUNTER → 2021-12-25 10:44 | Outpatient (BNVA) | payer MEDICARE, SELFPAY | PROVIDERS: Family Provider Family Medicine; Visit Provider Nurse Practitioner Family | DX: E03.9 Hypothyroidism, unspecified (principal); E78.5 Hyperlipidemia, unspecified; E11.9 Type 2 diabetes mellitus without complications; I10 Essential (primary) hypertension; M25.512 Pain in left shoulder | CPT/HCPCS: 80053; 80061; 83036; 84443 ==

== ENCOUNTER → 2022-01-12 11:51 | Outpatient (BNVA) | payer MEDICARE, SELFPAY | PROVIDERS: Family Provider Family Medicine; Visit Provider Nurse Practitioner Family | DX: N28.9 Disorder of kidney and ureter, unspecified (principal) | CPT/HCPCS: 80053 ==

== ENCOUNTER → 2022-02-22 00:01 | Outpatient (BNVA) | payer MEDICARE, SELFPAY | PROVIDERS: Family Provider Family Medicine; PCP Nurse Practitioner Family; Visit Provider Nurse Practitioner Family | DX: E03.9 Hypothyroidism, unspecified (principal); I10 Essential (primary) hypertension; E78.5 Hyperlipidemia, unspecified; E11.29 Type 2 diabetes mellitus with other diabetic kidney complication | CPT/HCPCS: 80053; 80061; 83036; 84443 ==

== ENCOUNTER → 2022-03-29 11:06 | Outpatient (BNVA) | payer MEDICARE, SELFPAY | PROVIDERS: Family Provider Family Medicine; PCP Nurse Practitioner Family; Visit Provider Nurse Practitioner Family | DX: N28.9 Disorder of kidney and ureter, unspecified (principal); E11.29 Type 2 diabetes mellitus with other diabetic kidney complication; R80.9 Proteinuria, unspecified | CPT/HCPCS: 80053 ==

== ENCOUNTER → 2022-04-19 10:44 | Outpatient (BNVA) | payer MEDICARE, SELFPAY | PROVIDERS: Family Provider Family Medicine; PCP Nurse Practitioner Family; Visit Provider Nurse Practitioner Family | DX: Z20.822 Contact with and (suspected) exposure to COVID-19 (principal) | CPT/HCPCS: 87426 ==

== ENCOUNTER → 2022-05-09 13:40 | Outpatient (BNVA) | payer MEDICARE, SELFPAY | PROVIDERS: Family Provider Family Medicine; PCP Nurse Practitioner Family; Visit Provider Nurse Practitioner Family | DX: R51.9 Headache, unspecified (principal); G89.29 Other chronic pain; R53.83 Other fatigue; E03.9 Hypothyroidism, unspecified; E11.29 Type 2 diabetes mellitus with other diabetic kidney complication; R80.9 Proteinuria, unspecified | CPT/HCPCS: 80053; 84443; 85025 ==

== ENCOUNTER → 2022-05-16 13:36 | Outpatient (BNVA) | payer MEDICARE, SELFPAY | PROVIDERS: Family Provider Family Medicine; PCP Nurse Practitioner Family; Visit Provider Nurse Practitioner Family | DX: U09.9 Post COVID-19 condition, unspecified (principal); N28.9 Disorder of kidney and ureter, unspecified; R10.9 Unspecified abdominal pain; D64.9 Anemia, unspecified | CPT/HCPCS: 82607; 83540; 83550; 85025; 87426 ==

== ENCOUNTER → 2022-07-11 10:56 | Outpatient (BNVA) | payer MEDICARE, SELFPAY | PROVIDERS: Family Provider Family Medicine; PCP Nurse Practitioner Family; Visit Provider Nurse Practitioner Family | DX: I10 Essential (primary) hypertension (principal); E11.29 Type 2 diabetes mellitus with other diabetic kidney complication; R80.9 Proteinuria, unspecified; E03.9 Hypothyroidism, unspecified | CPT/HCPCS: 80053; 80061; 83036; 84443 ==

== ENCOUNTER 2022-07-13 08:22 | Outpatient (CLI) | payer MEDICARE, SELFPAY ==
[2022-07-13] MEDS: iohexol 350 mg/mL 100 mL Btl IV (09:19)
[2022-07-13] MEDS: iohexol 350 mg/mL 100 mL Btl PO (09:20)
--- NOTE | 2022-07-13 09:30 | CT_ITS ---
WS: [id number] Exam: CT abdomen w con* [id number] Date/Time of Exam: 07/13/2022 9:18 AM Reason For Exam: R10.9 - Unspecified abdominal pain DLP: 761.[address] scans at [facility] use at least one of these dose optimization techniques: automated e xposure control; mA and/or kV adjustment per patient size (includes targeted exams where dose is matc hed to clinical indication); or iterative reconstruction. Areas of plaque atelectasis in the bilateral lower lung zones with moderate-sized posterior bilateral pleural effusions. The liver, stomach, spleen and pancreas appear normal. The gallbladder is surgica lly absent. The abdominal aorta is normal in caliber. The IVC and portal vein are patent. Normal adre nal glands. 1.5 cm left renal cyst. The kidneys are otherwise normal. No renal obstruction. No lympha denopathy or free air. Small bowel loops are normal in caliber. No significant large bowel abnormalit y seen. Appendix incompletely visualized. No destructive bone lesions are seen. No significant abdomi nal wall defect. CT/CT abdomen w con* [id number] IMPRESSION: 1. No mass, lymphadenopathy or acute finding in the abdomen. 2. Moderate posterior bilateral pleural effusions noted.
== END 2022-07-13 08:23 | disposition home or self-care (01) ==
LOC: RAD 08:25
PROVIDERS: PCP Nurse Practitioner Family; Visit Provider Nurse Practitioner Family
DX: R10.9 Unspecified abdominal pain (principal); J90 Pleural effusion, not elsewhere classified
CPT/HCPCS: 74160

== ENCOUNTER → 2022-10-19 09:31 | Outpatient (BNVA) | payer MEDICARE, SELFPAY | PROVIDERS: PCP Nurse Practitioner Family; Visit Provider Nurse Practitioner Family | DX: I10 Essential (primary) hypertension (principal); R06.00 Dyspnea, unspecified; E11.29 Type 2 diabetes mellitus with other diabetic kidney complication; R80.9 Proteinuria, unspecified; R60.0 Localized edema | CPT/HCPCS: 80053; 80061; 83036; 83880; 84443 ==

== ENCOUNTER 2022-11-15 18:50 | Emergency (ER) | payer MEDICARE, SELFPAY ==
--- NOTE | 2022-11-15 18:51 | ED_ITS ---
HPI - General Adult General: Chief complaint: Altered Mental Status Stated complaint: UNRESPONSIVE/ LOW BS Time Seen by Provider: 11/15/22 18:51 History of Present Illness: Ms. Shah is a 56-year-old lady with significant past medical history of insulin-dependent diabetes presenting to the emergency department for episode of altered mental status and hypoglycemia. She reports being at her baseline health and does not have a history of frequent low blood sugars. She took her medications at about 1130 which she takes Lantus and did not eat. She subsequently laid down for a nap and was found unresponsive with low blood sugar of 17. EMS administered dextrose with improvement. Focal neurologic symptoms resolved. Patient currently feels back to baseline. No other specific changes in health, exacerbating, or alleviating factors identified. Onset (ago): hour(s) Relieving factors: none Exacerbating factors: none Associated symptoms: Reports no associated symptoms Review of Systems General: Reports: 10 or more systems reviewed and unremarkable except in HPI and below PFSH ED PFSH: Medical History Abscess Anemia Anemia Chronic headaches CKD (chronic kidney disease) COVID-19 Diabetes DKA (diabetic ketoacidoses) Fatigue GERD (gastroesophageal reflux disease) Hyperlipidemia Hyperosmolar hyperglycemic state (HHS) Hypoglycemia associated with diabetes Hypothyroidism Renal insufficiency Renal insufficiency Shoulder pain, left Surgical History H/O esophagogastroduodenoscopy H/O removal of cyst H/O tubal ligation Hx of cholecystectomy Family History Grandmother Cancer Denies family history of Diabetes CAD (coronary artery disease) Anesthesia complication Bleeding disorder Hypertension Stroke Social History Smoking and tobacco status: never smoked Alcohol intake: never Adopted: No Lives independently: Yes Household members: spouse and children Marital status: Current occupational status: disabled Physical Exam Const: COMMON NORMALS: patient oriented x3 and alert GENERAL APPEARANCE: cooperative and well developed HENMT: COMMON NORMALS: normocephalic and atraumatic HEAD & SCALP: normocephalic and atraumatic THROAT: posterior oropharynx normal Eye: COMMON NORMALS: conjunctivae normal CONJUNCTIVA: Yes conjunctivae normal SCLERA: sclerae normal Neck/C-Spine: COMMON NORMALS: supple GENERAL: Yes trachea midline Resp: COMMON NORMALS: normal respiratory effort and clear to auscultation bilaterally EFFORT & INSPECTION: Yes able to speak in complete sentences AUSCULTATION: clear to auscultation bilaterally Cardio: COMMON NORMALS: regular rate and regular rhythm RATE: regular rate RHYTHM: regular rhythm GI: COMMON NORMALS: Soft to palpation PALPATION: Yes Soft to palpation and No Tenderness to palpation present (GI) Extremity: GENERAL: Yes normal exam except as noted and No edema Neuro: COMMON NORMALS: patient oriented x3, CN's II-XII intact bilaterally, moves all extremities, no focal motor deficits and no sensory deficits noted SENSORIUM/ORIENTATION: Yes alert and No Orientation impaired Psych: COMMON NORMALS: mental status grossly normal and Normal thought process present THOUGHT PROCESS: Normal thought process present Course Vital Signs: Vital signs: Vital Signs Temperature 97.6 F 11/15/22 18:56 Pulse Rate 95 11/15/22 21:26 Respiratory Rate 16 11/15/22 21:26 Blood Pressure 210/98 11/15/22 21:26 Pulse Oximetry 95 11/15/22 21:26 Oxygen Delivery Me thod 11/15/22 18:56 MDM - General Adult Medical Decision Making 57-year-old lady presenting due to episode of unresponsiveness with associated focal neurologic symptoms in the context of hypoglycemia that resolved with EMS treatment of blood glucose. Patient reports taking insulin however not eating as normally. EKG notable for sinus rhythm with nonspecific ST segment abnormalities, no STEMI. Labs notable for no leukocytosis, normocytic anemia present without evidence of bleeding. Metabolic end with mildly elevated creatinine as well as hypokalemia. BNP is mildly elevated. Urinalysis with squamous epithelial contamination. Chest x-ray demonstrates mild bilateral opacities, no lobar consolidation or pneumothorax. Patient tolerated p.o. intake and point of care care monitor glucose was monitored. She feels back baseline and there is no evidence of recurrence of hypoglycemia. Most likely etiology of symptoms is medication induced hypoglycemia with satisfactory observation in the emergency department without recurrence. The results of ED evaluation were discussed with the patient including prescriptions and/or symptomatic cares (if applicable) including appropriate and responsible use, followup plan, and return precautions. The patient verbalized understanding and felt safe for discharge. Medical Records I reviewed the patient's medical records. Lab Data I reviewed the patient's lab results. 11/15/22 19:19 11/15/22 19:19 Radiology Impressions Chest X-Ray 11/15/22 19:02 IMPRESSION: Cardiomegaly with mild bibasilar interstitial opacities as discussed above. Laboratory Results WBC 6.9 10^3/uL (4.0-10.0) 11/15/22 19:19 RBC 3.50 10^6/uL (4.1-5.3) L 11/15/22 19:19 Hgb 9.8 g/dL (11.5-15.3) L 11/15/22 19:19 Hct 31.0 % (37.0-47.0) L 11/15/22 19:19 MCV 88.6 fl (81-99) 11/15/22 19:19 MCH 28.0 pg (28.0-34.0) 11/15/22 19:19 MCHC 31.6 g/dL (30.0-36.0) 11/15/22 19:19 RDW 13.9 % (12.1-15.1) 11/15/22 19:19 Plt Count 258 10^3/cmm (130-400) 11/15/22 19:19 MPV 9.2 fL (7.4-10.4) 11/15/22 19:19 Neut % (Auto) 80.1 % 11/15/22 19:19 Lymph % (Auto) 11.4 % 11/15/22 19:19 [place] % (Auto) 5.5 % 11/15/22 19:19 Eos % (Auto) 1.4 % 11/15/22 19:19 Baso % (Auto) 1.0 % 11/15/22 19:19 Neut # (Auto) 5.56 10^3/uL (1.8-7.7) 11/15/22 19:19 Lymph # (Auto) 0.8 10^3/uL (0.8-4.8) 11/15/22 19:19 [place] # (Auto) 0.4 10^3/uL (0.2-0.9) 11/15/22 19:19 Eos # (Auto) 0.1 10^3/uL (0.0-0.8) 11/15/22 19:19 Baso # (Auto) 0.1 10^3/uL (0.0-0.1) 11/15/22 19:19 Nucleated RBC % (auto) 0 % 11/15/22 19:19 Nucleated RBCs # 0.0 /100WBC 11/15/22 19:19 Sodium 145 mmol/L (136-145) 11/15/22 19:19 Potassium 3.2 mmol/L (3.5-5.1) L 11/15/22 19:19 Chloride 108 mmol/L (98-107) H 11/15/22 19:19 Carbon Dioxide 29 mmol/L (22-29) 11/15/22 19:19 Anion Gap 11.2 (5-19) 11/15/22 19:19 BUN 24 mg/dL (6-20) H 11/15/22 19:19 Creatinine 1.6 mg/dL (0.5-0.9) H 11/15/22 19:19 GFR Calculation 33.5 mL/min (90-130) L 11/15/22 19:19 Glucose 58 mg/dL (65-115) L 11/15/22 19:19 POC Glucose 108 mg/dL (70-110) 11/15/22 20:53 Calculated Osmolality 302 mOsm/kg (285-295) H 11/15/22 19:19 Calcium 8.7 mg/dL (8.5-10.5) 11/15/22 19:19 Total Bilirubin 0.3 mg/dL (0.15-1.2) 11/15/22 19:19 AST 17 U/L (0-32) 11/15/22 19:19 ALT 13 U/L (0-33) 11/15/22 19:19 Alkaline Phosphatase 101 U/L (35-105) 11/15/22 19:19 NT-Pro-B Natriuret Pep 2936 pg/mL (0-125) H 11/15/22 19:19 Total Protein 6.0 g/dL (6.6-8.7) L 11/15/22 19:19 Albumin 2.9 g/dL (3.5-5.2) L 11/15/22 19:19 Globulin 3.1 g/dL (1.3-4.6) 11/15/22 19:19 Urine Color Yellow (Yellow) 11/15/22 19:18 Urine Appearance Hazy (CLEAR) A 11/15/22 19:18 Urine pH 5 (5-7) 11/15/22 19:18 Ur Specific [place] 1.020 (1.005-1.030) 11/15/22 19:18 Urine Protein 3+ (Negative) H 11/15/22 19:18 Urine Glucose (UA) Norm (Normal) 11/15/22 19:18 Urine Ketones Negative (Negative) 11/15/22 19:18 Urine Blood 2+ (Negative) H 11/15/22 19:18 Urine Nitrate Negative (Negative) 11/15/22 19:18 Urine Bilirubin Neg (Negative) 11/15/22 19:18 Urine Urobilinogen Neg mg/dL (Negative) 11/15/22 19:18 Ur Leukocyte Esterase Negative (Negative) 11/15/22 19:18 Urine RBC 0-4 /hpf (0-2) H 11/15/22 19:18 Urine WBC 0-4 /hpf (0-5) H 11/15/22 19:18 Ur Squamous Epith Cells 5-10 /hpf (0-5) H 11/15/22 19:18 Amorphous Sediment 2+ /hpf 11/15/22 19:18 Urine Bacteria Trace /hpf (NONE) 11/15/22 19:18 Discharge Plan Discharge Patient Disposition: Home Clinical Impression: Hypoglycemia associated with diabetes, Anemia, Hypokalemia, CKD (chronic kidney disease) Condition: Stable Prescriptions: New metoclopramide HCl [Reglan] 10 mg tablet 10 mg PO Q6H PRN (Reason: nausea and vomiting) Qty: 20 0RF No Action sitagliptin phosphate 25 mg tablet 25 mg PO DAILY Qty: 30 1RF (DME) insulin syringe-needle U-100 [BD Insulin Syringe] 0.5 mL 29 gauge x 1/2 syringe See Rx Instructions .Route Qty: 100 1RF Rx Instructions: As directed potassium chloride 20 mEq tablet extended release 20 meq PO DAILY Qty: 30 0RF (DME) diabetic supplies, miscellan. Misc See Rx Instructions .Route Qty: 1 0RF Rx Instructions: As directed - glucometer, 120 strips, 120 lancets levothyroxine 50 mcg tablet 50 mcg PO DAILY hydralazine 10 mg Tablet 10 mg PO TID Qty: 90 2RF metoprolol tartrate 25 mg Tablet 25 mg PO BID@0900,2100 Qty: 60 3RF amlodipine 5 mg tablet 5 mg PO DAILY Qty: 30 2RF furosemide 20 mg tablet 20 mg PO DAILY Qty: 60 2RF Discharge Orders: Discharge ED (Routine); Ordered 11/15/22 Ordered By: Arik Munguia Referrals: Ramandeep Biggs, CRANE HOOKER [Primary Care Provider] - Discharge Diet: Usual diet Discharge Activity: Increase activity as tolerated Patient Instructions: Hypoglycemia in a Person with Diabetes (ED), What to Do if Your Blood Sugar is Low (ED) Activity Restrictions/Additional Instructions: Thank you for visiting the emergency department. You were seen and evaluated for episode of unresponsiveness associated with a low blood sugar. The most likely cause of this is medication and not eating. Please follow-up with your primary care provider. For the chronic nausea and vomiting I recommend endoscopy which can be arranged by your primary care provider. Please ensure that you are staying hydrated. Return to the emergency department for recurrence of symptoms or anything else that you are concerned about and feel needs emergency department evaluation. Coding Level of Care Code ED Entertainment Production Professional for Joni Rae
[2022-11-15 18:56] VITALS: BP 210/100; PULSE 81; RESP 17; TEMP 36.4; O2SAT 97; BMI 42.2
--- NOTE | 2022-11-15 19:02 | ECG_ITS ---
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 Measurements Intervals [place] Rate: 85 P: 40 TX: 153 QRS: 24 QRSD: 86 T: 66 QT: 366 QTc: 436 Interpretive Statements SINUS RHYTHM POSSIBLE ANTERIOR MYOCARDIAL INFARCTION , OF INDETERMINATE AGE [30 ms Q WAVE IN V3/V4, OR R < 0.2 mV IN V4] Compared to ECG 03/22/2021 20:12:14 No significant changes Electronically Signed On 11-15-2022 23:44:08 WATER SERVICE DISPATCHER by Naye Layne M.D. [email or web address]
--- NOTE | 2022-11-15 19:02 | XRR_ITS ---
PROCEDURE INFORMATION: Exam: XR Chest Exam date and time: 11/15/2022 7:23 PM Age: 56 years old Clinical indication: Other: Altered mental status; Additional info: AMS TECHNIQUE: Imaging protocol: Radiologic exam of the chest. Views: 1 view. COMPARISON: CR XR chest 1V portable [id number] 03/26/2021 1:47 PM FINDINGS: Lungs: There are some wispy linear opacities at the lung bases likely in part secondary to linear atelectasis. Superimposed bibasilar interstitial lung changes cannot be ruled out and could be clarified on CT exam of the chest if clinically warranted.. Remaining lung matamoros are clear. Pleural spaces: Unremarkable. No pleural effusion. No pneumothorax. Heart/Mediastinum: Cardiac silhouette is mildly enlarged, stable. Bones/joints: Unremarkable for age. XR/XR chest 1V portable [id number] IMPRESSION: Cardiomegaly with mild bibasilar interstitial opacities as discussed above.
[2022-11-15 19:06] LABS: Glucose Point of Care 63 mg/dL (70-110)
[2022-11-15 19:27] LABS: Basophils # 0.1 10^3/uL (0.0-0.1); Eosinophils # 0.1 10^3/uL (0.0-0.8); Eosinophils % 1.4 %; Hemoglobin 9.8 g/dL (11.5-15.3); Lymphocytes # 0.8 10^3/uL (0.8-4.8); Lymphocytes % 11.4 %; Mean Corpuscular HGB Conc 31.6 g/dL (30.0-36.0); Mean Corpuscular Volume 88.6 fl (81-99); Mean Platelet Volume 9.2 fL (7.4-10.4); Monocytes # 0.4 10^3/uL (0.2-0.9); Monocytes % 5.5 %; Neutrophils # 5.56 10^3/uL (1.8-7.7); Neutrophils % 80.1 %; Nucleated Red Blood Cells % 0 %; Platelet Count 258 10^3/cmm (130-400); Red Cell Distribution Width 13.9 % (12.1-15.1); White Blood Count 6.9 10^3/uL (4.0-10.0)
[2022-11-15 19:37] LABS: Add Urine Microscopic? YES; Bilirubin Urine Neg (Negative); Blood Urine 2+ (Negative); Glucose Urine UA Norm (Normal); Ketones Urine Negative (Negative); Leukocyte Esterase Urine Negative (Negative); Nitrate Urine Negative (Negative); Protein Urine 3+ (Negative); Urine Appearance Hazy (CLEAR); Urine Color Yellow (Yellow); Urobilinogen Urine Neg (Negative); pH Urine 5 (5-7)
[2022-11-15 19:42] LABS: Glucose Point of Care 55 mg/dL (70-110)
[2022-11-15 19:46] LABS: Add Urine Culture? No; Amorphous Sediment Urine 2+ /hpf; Bacteria Urine TRACE /hpf; RBC Urine 0-4 /hpf (0-2); WBC Urine 0-4 /hpf (0-5)
[2022-11-15 20:00] LABS: Alanine Aminotransferase 13 U/L (0-33); Albumin Level 2.9 g/dL (3.5-5.2); Alkaline Phosphatase 101 U/L (35-105); Anion Gap 11.2 (5-19); Aspartate Amino Transferase 17 U/L (0-32); Blood Urea Nitrogen 24 mg/dL (6-20); Calcium 8.7 mg/dL (8.5-10.5); Carbon Dioxide 29 mmol/L (22-29); Chloride 108 mmol/L (98-107); Globulin 3.1 g/dL (1.3-4.6); Glomerular Filtration Rate 33.5 mL/min (90-130); Glucose 58 mg/dL (65-115); NT Pro B Type Natriuretic Pept 2936 pg/mL (0-125); Osmolality Calculated 302 mOsm/kg (285-295); Potassium 3.2 mmol/L (3.5-5.1); Sodium 145 mmol/L (136-145); Total Bilirubin 0.3 mg/dL (0.15-1.2)
[2022-11-15] MEDS: sodium chloride 0.9% 500 ML 999 ML IV (20:20)
[2022-11-15] MEDS: potassium chloride ER 20 mEq Tablet 40 MEQ PO (20:36)
[2022-11-15 20:44] VITALS: PULSE 99; RESP 16; O2SAT 94
[2022-11-15 21:26] VITALS: BP 210/98; PULSE 95; RESP 16; O2SAT 95
[2022-11-19 09:35] LABS: Glucose Point of Care 108 mg/dL (70-110)
== END 2022-11-15 21:27 | disposition home or self-care (01) ==
PROVIDERS: Emergency Provider Emergency Medicine; PCP Nurse Practitioner Family
DX: E11.649 Type 2 diabetes mellitus with hypoglycemia without coma (principal); E11.22 Type 2 diabetes mellitus with diabetic chronic kidney disease; N18.9 Chronic kidney disease, unspecified; E78.5 Hyperlipidemia, unspecified; D64.9 Anemia, unspecified; E87.6 Hypokalemia; Z79.82 Long term (current) use of aspirin; I51.7 Cardiomegaly
CPT/HCPCS: 36416; 71045; 80053; 81001; 82962; 83880; 85025; 93005; 99285; J7040

== ENCOUNTER 2022-11-16 06:39 | Observation (INO) | payer MEDICARE, SELFPAY ==
[2022-11-16 06:43] VITALS: BP 225/92; PULSE 81; TEMP 36.1; O2SAT 93; BMI 42.2
[2022-11-16 07:03] LABS: Glucose Point of Care 81 mg/dL (70-110)
--- NOTE | 2022-11-16 07:25 | XR_ITS ---
WS: [id number] Portable AP upright chest, 11/16/2022 Clinical Data: dyspnea/cough Comparison: Portable chest, 11/15/2022 Findings: No nodules, masses or effusions are seen. The heart is slightly enlarged. The pulmonary vas cularity is not increased. No pneumonia or pneumothorax is seen. The right basilar opacities remain t he same. XR/XR chest 1V portable [id number] Impression: No change in cardiomegaly and bibasilar opacities.
--- NOTE | 2022-11-16 07:27 | W.ED.GENADLT ---
HPI - General Adult General: Chief complaint: General Medical Stated complaint: LOW SUGAR Time Seen by Provider: 11/16/22 06:40 Source: patient Mode of arrival: EMS History of Present Illness: 56-year-old female presents to the emergency room with report of hypoglycemia. Reported at home that this morning the patient's blood sugar was 17. She is normally on Lantus she did not take any last night. She was in the ER last night for hypoglycemia given glucose in the low to eat blood sugar resolved she appeared to be back to her baseline and she was discharged home. Interestingly reviewing last night's note the report was a blood sugar of 17 as well. Patient states she normally takes 35 units of Lantus twice a day she does not take any last night after leaving here. She was discharged from here around 9 PM. Patient denies any chest pain she has been a little bit short of breath recently. Onset (ago): hour(s) Relieving factors: none Exacerbating factors: none Associated symptoms: Reports dyspnea and short of breath; Deny chest pain, confusion, cough, diaphoresis, decreased appetite, fevers/chills, headache(s), malaise, nausea, rash, palpitations, seizures, syncope, vomiting or weakness Treatments prior to arrival: other (Glucose) Review of Systems Const: Denies: fever(s), chills, malaise or diaphoresis ENMT: Reports: throat pain; Denies: ear or mastoid pain, nasal discharge or nasal congestion Card: Denies: chest pain, palpitations or syncope Resp: Reports: dyspnea; Denies: productive cough, non-productive cough or wheezing GI: Denies: abdominal pain, nausea or vomiting : Denies: flank pain, difficulty voiding, dysuria, urinary frequency or urinary urgency Skin/Breast: Denies: rash Neuro: Denies: headache(s) or confusion PFSH ED PFSH: Medical History Abscess COVID-19 Diabetes DKA (diabetic ketoacidoses) GERD (gastroesophageal reflux disease) Hyperlipidemia Hyperosmolar hyperglycemic state (HHS) Hypothyroidism Renal insufficiency Shoulder pain, left Surgical History H/O esophagogastroduodenoscopy H/O removal of cyst H/O tubal ligation Hx of cholecystectomy Family History Grandmother Cancer Denies family history of Diabetes CAD (coronary artery disease) Anesthesia complication Bleeding disorder Hypertension Stroke Social History Smoking and tobacco status: never smoked Alcohol intake: never Adopted: No Lives independently: Yes Household members: spouse and children Marital status: Current occupational status: disabled Physical Exam Const: GENERAL APPEARANCE: cooperative and comfortable ORIENTATION/CONSCIOUSNESS: Yes awake, Yes oriented to person, Yes oriented to place and Yes oriented to time HENMT: COMMON NORMALS: normocephalic, atraumatic and hearing grossly normal bilaterally HEAD & SCALP: normocephalic and atraumatic Resp: COMMON NORMALS: normal respiratory effort, No retractions, No use of accessory muscles and clear to auscultation bilaterally AUSCULTATION: clear to auscultation bilaterally Cardio: COMMON NORMALS: regular rate, regular rhythm and No murmurs present (Cardio) RATE: regular rate RHYTHM: regular rhythm GI: COMMON NORMALS: Soft to palpation and No hepatosplenomegaly present AUSCULTATION: Yes normoactive bowel sounds PALPATION: Yes Soft to palpation, No Tenderness to palpation present (GI), No Guarding due to palpation present (GI) and Yes No hepatosplenomegaly present Extremity: COMMON NORMALS: normal to inspection, capillary refill normal, no clubbing, cyanosis or edema, no calf tenderness and no pedal edema Neuro: SENSORIUM/ORIENTATION: Yes oriented to person, Yes oriented to place and Yes oriented to time Skin: COMMON NORMALS: no rashes or lesions noted GENERAL SKIN EXAM: no rashes or lesions noted Course Vital Signs: Vital signs: Vital Signs Temperature 98.4 F 11/17/22 18:42 Pulse Rate 60 11/17/22 18:42 Respiratory Rate 16 11/17/22 18:42 Blood Pressure 142/67 11/17/22 18:42 Pulse Oximetry 93 11/17/22 18:42 Oxygen Delivery Me thod 11/17/22 15:00 MDM - General Adult Medical Decision Making Patient is here for an extended time in the emergency room we tried to get her to eat we gave her continuous infusion of D10 despite this she remains at barely over 100 on her blood sugar. I am concerned about sending her home at this point I would have expected given the fact that its been well over 12 hours since she took the insulin that her blood sugar would have stabilized recommend only observation or and continue to monitor blood sugars. In addition to her hypoglycemia and she is moderately anemic discussed with the hospitalist orders written Medical Records I reviewed the patient's medical records. Lab Data I reviewed the patient's lab results. 11/16/22 07:50 11/16/22 07:50 Radiology Impressions Chest X-Ray 11/16/22 07:25 Impression: No change in cardiomegaly and bibasilar opacities. KUB X-Ray 11/16/22 16:35 IMPRESSION: No acute findings. Laboratory Results WBC 7.2 10^3/uL (4.0-10.0) 11/16/22 07:50 RBC 4.06 10^6/uL (4.1-5.3) L 11/16/22 07:50 Hgb 11.1 g/dL (11.5-15.3) L 11/16/22 07:50 Hct 36.0 % (37.0-47.0) L 11/16/22 07:50 MCV 88.7 fl (81-99) 11/16/22 07:50 MCH 27.3 pg (28.0-34.0) L 11/16/22 07:50 MCHC 30.8 g/dL (30.0-36.0) 11/16/22 07:50 RDW 14.0 % (12.1-15.1) 11/16/22 07:50 Plt Count 297 10^3/cmm (130-400) 11/16/22 07:50 MPV 9.7 fL (7.4-10.4) 11/16/22 07:50 Neut % (Auto) 84.0 % 11/16/22 07:50 Lymph % (Auto) 9.9 % 11/16/22 07:50 [place] % (Auto) 3.9 % 11/16/22 07:50 Eos % (Auto) 1.0 % 11/16/22 07:50 Baso % (Auto) 0.8 % 11/16/22 07:50 Neut # (Auto) 6.00 10^3/uL (1.8-7.7) 11/16/22 07:50 Lymph # (Auto) 0.7 10^3/uL (0.8-4.8) L 11/16/22 07:50 [place] # (Auto) 0.3 10^3/uL (0.2-0.9) 11/16/22 07:50 Eos # (Auto) 0.1 10^3/uL (0.0-0.8) 11/16/22 07:50 Baso # (Auto) 0.1 10^3/uL (0.0-0.1) 11/16/22 07:50 Nucleated RBC % (auto) 0 % 11/16/22 07:50 Nucleated RBCs # 0.0 /100WBC 11/16/22 07:50 Sodium 145 mmol/L (136-145) 11/16/22 07:50 Potassium 3.9 mmol/L (3.5-5.1) 11/16/22 07:50 Chloride 107 mmol/L (98-107) 11/16/22 07:50 Carbon Dioxide 27 mmol/L (22-29) 11/16/22 07:50 Anion Gap 14.9 (5-19) 11/16/22 07:50 BUN 22 mg/dL (6-20) H 11/16/22 07:50 Creatinine 1.7 mg/dL (0.5-0.9) H 11/16/22 07:50 GFR Calculation 31.2 mL/min (90-130) L 11/16/22 07:50 Glucose 77 mg/dL (65-115) 11/16/22 07:50 POC Glucose 109 mg/dL (70-110) 11/16/22 11:39 Estimat Average Glucose 108 11/16/22 07:50 Hemoglobin A1c 5.4 % (4.0-6.0) 11/16/22 07:50 Calculated Osmolality 302 mOsm/kg (285-295) H 11/16/22 07:50 Calcium 9.4 mg/dL (8.5-10.5) 11/16/22 07:50 Total Bilirubin 0.4 mg/dL (0.15-1.2) 11/16/22 07:50 AST 18 U/L (0-32) 11/16/22 07:50 ALT 14 U/L (0-33) 11/16/22 07:50 Alkaline Phosphatase 117 U/L (35-105) H 11/16/22 07:50 Total Protein 6.8 g/dL (6.6-8.7) 11/16/22 07:50 Albumin 3.0 g/dL (3.5-5.2) L 11/16/22 07:50 Globulin 3.8 g/dL (1.3-4.6) 11/16/22 07:50 TSH 2.96 uIU/mL (0.27-4.20) 11/16/22 07:50 Discharge Plan Discharge Patient Disposition: Placed in Observation Admit Provider: Everardo Mcdonald Clinical Impression: Hypoglycemia associated with diabetes, Diabetes, Anemia Coding Level of Care Code 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
[2022-11-16] MEDS: metoprolol tartrate 25 mg Tablet PO ×2 (07:45→20:36)
[2022-11-16] MEDS: amlodipine 10 mg Tablet PO (07:45)
[2022-11-16] MEDS: lisinopril 10 mg Tablet PO (07:45)
[2022-11-16] MEDS: labetalol 5 mg/mL SDV 20mL 10 MG IVP (07:45)
[2022-11-16 07:58] LABS: Basophils # 0.1 10^3/uL (0.0-0.1); Basophils % 0.8 %; Eosinophils # 0.1 10^3/uL (0.0-0.8); Hemoglobin 11.1 g/dL (11.5-15.3); Lymphocytes # 0.7 10^3/uL (0.8-4.8); Lymphocytes % 9.9 %; Mean Corpuscular HGB Conc 30.8 g/dL (30.0-36.0); Mean Corpuscular Hemoglobin 27.3 pg (28.0-34.0); Mean Corpuscular Volume 88.7 fl (81-99); Mean Platelet Volume 9.7 fL (7.4-10.4); Monocytes # 0.3 10^3/uL (0.2-0.9); Monocytes % 3.9 %; Nucleated Red Blood Cells % 0 %; Platelet Count 297 10^3/cmm (130-400); Red Blood Count 4.06 10^6/uL (4.1-5.3); White Blood Count 7.2 10^3/uL (4.0-10.0)
[2022-11-16] MEDS: dextrose 10% 1,000 ML 30 ML IV (08:02)
[2022-11-16 08:07] VITALS: BP 190/71; O2SAT 99
[2022-11-16 08:22] LABS: Alanine Aminotransferase 14 U/L (0-33); Alkaline Phosphatase 117 U/L (35-105); Anion Gap 14.9 (5-19); Aspartate Amino Transferase 18 U/L (0-32); Blood Urea Nitrogen 22 mg/dL (6-20); Calcium 9.4 mg/dL (8.5-10.5); Carbon Dioxide 27 mmol/L (22-29); Chloride 107 mmol/L (98-107); Globulin 3.8 g/dL (1.3-4.6); Glomerular Filtration Rate 31.2 mL/min (90-130); Glucose 77 mg/dL (65-115); Osmolality Calculated 302 mOsm/kg (285-295); Potassium 3.9 mmol/L (3.5-5.1); Sodium 145 mmol/L (136-145); Total Bilirubin 0.4 mg/dL (0.15-1.2); Total Protein 6.8 g/dL (6.6-8.7)
[2022-11-16 08:35] LABS: Glucose Point of Care 104 mg/dL (70-110)
--- NOTE | 2022-11-16 08:58 | ECG_ITS ---
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 [id number]
[2022-11-16 10:50] LABS: Glucose Point of Care 102 mg/dL (70-110)
[2022-11-16 11:42] LABS: Glucose Point of Care 109 mg/dL (70-110)
--- NOTE | 2022-11-16 12:04 | PM.HP ---
Providers/Chief Complaint Primary Care Provider: TUCKER Vincent Chief Complaint: LOW SUGAR History of Present Illness Tayler Ramires is a 56 year old female with history of type 2 diabetes takes Lantus at home, presented with an episode of hypoglycemia, she was seen in the ER earlier today when she was given dextrose and was discharged however she returned with another episode of hypoglycemia this time she is on D10 hospice service has been requested to admit the patient. I have requested 1 g of glucagon Patient is stating that she is taking 35 units of Lantus twice a day she has not noticed any change however her blood sugar at average runs around 260 she has not noticed any chest pain nausea fever, diarrhea but endorsing vomiting Review of Systems Const: Denies: fever(s) Eyes: Denies: change in vision ENMT: Denies: throat pain Card: Denies: chest pain Resp: Denies: dyspnea GI: Denies: abdominal pain : Denies: flank pain Musc: Denies: neck pain Skin/Breast: Denies: rash Neuro: Denies: headache(s) Psych: Denies: anxiety Endo: Denies: polyuria Skyler/Lymph: Denies: easy bruising All/Imm: Denies: urticaria Medications/Allergies Home Medications Medication Instructions Recorded Confirmed Last Taken Type diabetic supplies, miscellan. #1 ea 03/27/21 11/16/22 Unknown Rx insulin syringe-needle U-100 0.5 #100 ea 03/29/22 11/16/22 Unknown Rx mL 29 gauge x 1/2 (BD Insulin Syringe) lisinopril 10 mg tablet 10 mg PO DAILY #90 tabs 07/11/22 11/16/22 11/15/22 Rx furosemide 20 mg tablet 20 mg PO DAILY #30 tabs 10/26/22 11/16/22 11/15/22 Rx potassium chloride 20 mEq 20 meq PO DAILY #30 tabs 10/26/22 11/16/22 11/15/22 Rx tablet,extended release insulin glargine 100 unit/mL See Rx Instructions .Route 10/30/22 11/16/22 11/15/22 Rx subcutaneous solution (Lantus .COMPLEX #20 mL U-100 Insulin) metoclopramide HCl 10 mg tablet 10 mg PO Q6H PRN nausea and 11/15/22 11/16/22 Unknown Rx (Reglan) vomiting #20 tabs levothyroxine 50 mcg tablet 50 mcg PO DAILY 11/16/22 11/16/22 11/15/22 History Allergies Allergy/AdvReac Type Severity Reaction Status Date / Time doxycycline Allergy ALGY-Rash Verified 11/16/22 10:10 PFSH Acute PFSH: Medical History Abscess COVID-19 Diabetes DKA (diabetic ketoacidoses) GERD (gastroesophageal reflux disease) Hyperlipidemia Hyperosmolar hyperglycemic state (HHS) Hypothyroidism Renal insufficiency Shoulder pain, left Surgical History H/O esophagogastroduodenoscopy H/O removal of cyst H/O tubal ligation Hx of cholecystectomy Family History Grandmother Cancer Denies family history of Diabetes CAD (coronary artery disease) Anesthesia complication Bleeding disorder Hypertension Stroke Social History Smoking and tobacco status: never smoked Alcohol intake: never Adopted: No Lives independently: Yes Household members: spouse and children Marital status: Current occupational status: disabled Vitals/I&O/Wt Last Vital Signs Temp 96.9 F L 11/16/22 06:43 Pulse 81 11/16/22 06:43 BP 190/71 11/16/22 08:07 Pulse Ox 99 11/16/22 08:07 O2 Del Method 11/16/22 08:07 Weight last 48 hrs Weight 97.976 kg Physical Exam Narrative: S1, S2 GCS 15 Nonfocal neuro exam Abdomen soft Morbidly obese female Nonfocal neuro exam Currently on room air and doing well Hypertensive Pleasant and cooperative Signs of heart failure with edema of legs Data 11/16/22 07:50 11/16/22 07:50 A&P Assessment and plan (1) Hypoglycemia associated with diabetes: (2) Anemia: (3) CKD (chronic kidney disease): (4) Anemia: (5) Renal insufficiency: (6) Fatigue: (7) Chronic headaches: Plan Recurrent hypoglycemic episodes We will give 1 g of glucagon Start D10 Monitor with frequent Accu-Cheks Hold insulin Check A1c level I will keep her on liquid diet for now Full code DVT prophylaxis on board Lower extremity edema Clinical signs of fluid overload Request echo acute CHF, new diagnosis We will request echo Start Lasix Full code Consistent carb diet Plan to discharge her tomorrow Attestations Medical Necessity Statement*: Anticipating discharge within 48 hours Diagnoses Hypoglycemia associated with diabetes E11.649 Anemia D64.9 CKD (chronic kidney disease) N18.9 Anemia D64.9 Renal insufficiency N28.9 Fatigue R53.83 Chronic headaches R51.9; G89.29
[2022-11-16 12:27] VITALS: BP 160/65; O2SAT 96
[2022-11-16 12:55] LABS: Estmated Average Glucose 108; Hemoglobin A1C 5.4 % (4.0-6.0)
[2022-11-16 14:31] LABS: Glucose Point of Care 125 mg/dL (70-110)
[2022-11-16 14:41] LABS: Thyroid Stimulating Hormone 2.96 uIU/mL (0.27-4.20)
[2022-11-16 14:54] VITALS: BMI 43.7
--- NOTE | 2022-11-16 16:35 | XRR_ITS ---
PROCEDURE INFORMATION: Exam: XR Abdomen Exam date and time: 11/16/2022 4:57 PM Age: 56 years old Clinical indication: Vomiting TECHNIQUE: Imaging protocol: Radiologic exam of the abdomen. Views: Frontal supine view of the abdomen. 1 View. COMPARISON: CT abdomen w con* [id number] 07/13/2022 9:35 AM FINDINGS: Gastrointestinal tract: Normal. No bowel dilation. Intraperitoneal space: Right upper quadrant surgical clips are present suggestive of prior cholecystectomy. Bones/joints: Unremarkable. XR/XR KUB portable [id number] IMPRESSION: No acute findings.
[2022-11-16 17:07] LABS: Glucose Point of Care 111 mg/dL (70-110)
[2022-11-16 17:54] LABS: NT Pro B Type Natriuretic Pept 3140 pg/mL (0-125)
[2022-11-16 18:42] LABS: Glucose Point of Care 122 mg/dL (70-110)
[2022-11-16 19:41] VITALS: BP 175/83; PULSE 74; RESP 16; TEMP 36.7; O2SAT 94
[2022-11-16] MEDS: acetaminophen 325 mg Tablet 650 MG PO (20:34)
[2022-11-16] MEDS: hyDRALAzine 10 mg Tablet PO (20:36)
[2022-11-16 21:46] LABS: Glucose Point of Care 130 mg/dL (70-110)
[2022-11-16 23:40] VITALS: BP 111/69; PULSE 68; RESP 16; TEMP 36.8; O2SAT 92
[2022-11-17 00:56] LABS: Glucose Point of Care 136 mg/dL (70-110)
[2022-11-17 03:00] VITALS: BP 143/84; PULSE 65; RESP 16; TEMP 36.8; O2SAT 94
[2022-11-17 03:58] LABS: Anion Gap 10.7 (5-19); Blood Urea Nitrogen 23 mg/dL (6-20); Calcium 8.3 mg/dL (8.5-10.5); Carbon Dioxide 28 mmol/L (22-29); Chloride 110 mmol/L (98-107); Glomerular Filtration Rate 27.4 mL/min (90-130); Glucose 125 mg/dL (65-115); Osmolality Calculated 305 mOsm/kg (285-295); Potassium 3.7 mmol/L (3.5-5.1); Sodium 145 mmol/L (136-145)
[2022-11-17 04:16] LABS: Glucose Point of Care 127 mg/dL (70-110)
--- NOTE | 2022-11-17 06:00 | USCV_ITS ---
Tayler Ramires Age: 56 Gender: F : 1965 Exam Date: 11/17/2022 10:24 Ordering Phys: Everardo Mcdonald MD Technologist: CHLOÉ Exam Location: [facility] [place] Indication: chf BP: / HR: 65 Rhythm: Sinus Technical Quality: Adequate MEASUREMENTS (Male / Female) Normal Values 2D ECHO LV Diastolic Diameter PLAX 4.7 cm 4.2 - 5.9 / 3.9 - 5.3 cm LV Systolic Diameter PLAX 3.0 cm IVS Diastolic Thickness 0.9 cm 0.6 - 1.0 / 0.6 - 0.9 cm IVS Systolic Thickness 1.1 cm LVPW Diastolic Thickness 0.8 cm 0.6 - 1.0 / 0.6 - 0.9 cm LVPW Systolic Thickness 1.3 cm LVOT Diameter 1.8 cm LV Ejection Fraction 2D Teich 65.6 % LV Ejection Fraction MOD 2C 51.1 % LV Ejection Fraction 2C AL 48.0 % LA Diameter 3.5 cm IVC Diameter 1.8 cm M-MODE Aortic Annulus Diameter 2.1 cm LA Ao Ratio MM 1.7 MV E Point Septal Separation 0.6 cm DOPPLER AV Peak Velocity 160.0 cm/s LVOT Peak Velocity 104.0 cm/s AV Area Cont Eq vti 1.8 cm squared AV Area Cont Eq pk 1.6 cm squared MV Area PHT 4.4 cm squared Mitral E to A Ratio 1.3 MV E' Velocity 69.0 cm/s Mitral E to MV E' Ratio 18.9 Mitral E to LV E' Lateral Ratio 18.9 Mitral E to LV E' Septal Ratio 18.9 TR Peak Velocity 202.0 cm/s TR Peak Gradient 16.3 mmHg TV Peak E Velocity 79.0 cm/s PV Peak Velocity 89.0 cm/s FINDINGS Left Ventricle Normal left ventricular size and systolic function, EF 65 %. No regional wall motion abnormalities. Right Ventricle The right ventricle is normal in size and function. Right Atrium The right atrium is normal in size. Left Atrium Upper limit of normal size Mitral Valve Trace mitral valve regurgitation. Aortic Valve No gross abnormalities noted Tricuspid Valve No gross abnormalities noted Pulmonic Valve Pulmonic valve not well visualized. Pericardium Normal pericardium without effusion. Aorta Normal ascending aorta dimension. IVC Normal inferior vena cava. CONCLUSIONS Normal left ventricular size and systolic function, EF 65 %. No regional wall motion abnormalities. Trace mitral valve regurgitation. Left atrium upper limit of normal size There is no pericardial effusion. There are no intracardiac masses. Compared to the previous study from 03/23/2021, there may not be a significant change Dr Naye Layne MD [facility] (Electronically Signed) Final Date: 17 November 2022 20:07 S
[2022-11-17 06:28] LABS: Glucose Point of Care 136 mg/dL (70-110)
[2022-11-17 06:33] LABS: Blood Urine 2+ (Negative); Glucose Urine UA Trace (Normal); Ketones Urine Negative (Negative); Protein Urine 3+ (Negative); Urine Appearance SL Hazy (CLEAR); Urine Color Yellow (Yellow); pH Urine 5 (5-7)
[2022-11-17 06:34] LABS: Add Urine Microscopic? YES; Bilirubin Urine Neg (Negative); Leukocyte Esterase Urine Negative (Negative); Nitrate Urine Negative (Negative); Urobilinogen Urine Norm (Negative)
[2022-11-17 06:35] LABS: RBC Urine 0-4 /hpf (0-2)
[2022-11-17 06:37] LABS: Add Urine Culture? No; Bacteria Urine 3+ /hpf; Squamous Epithelial Cell Urine 15-25 /hpf (0-5)
--- NOTE | 2022-11-17 07:26 | P.DS_ITS ---
Discharge Providers Date of Admission: 11/16/22 14:05 Date of Discharge: November 16, 2022 Attending Provider at Admission: Everardo Mcdonald MD Attending Provider at Discharge: Everardo Mcdonald MD Primary Care Provider: TUCKER Vincent Diagnoses at Discharge Discharge Diagnosis (1) Hypoglycemia associated with diabetes: Status: Acute (2) Anemia: Status: Acute (3) CKD (chronic kidney disease): Status: Acute (4) Anemia: Status: Acute (5) Renal insufficiency: Status: Acute (6) Fatigue: Status: Acute (7) Chronic headaches: Status: Acute Reason for Visit Reason for Visit: LOW SUGAR Hospital Course Hospital Course 56-year-old female who presented for chief complaint of hyperglycemia, unconscious event at home, she was put on D10, 1 dose of glucagon given, her hemoglobin A1c is 5.4 and she is taking Lantus 35 units twice a day which I believe is a high dose considering her chronic kidney disease and hemoglobin A1c of 5.4. Considering hemoglobin A1c below 6 chronic kidney disease I would encourage her to discuss oral antihyperglycemic agents with her PCP and try to wean her off insulin patient was showing signs of volume overload, echo was requested, previous echo showed EF 60% grade 1 diastolic function, she was started on low-dose Lasix as well Physical Exam Narrative: Pleasant and cooperative Volume overload signs improving Awake and alert Currently on room air GCS 15 Hypertensive EOMI, PERRLA Discharge Data Studies Completed and Pending Completed Studies During Hospitalization Category Date Time Status XR chest 1V portable [id number] Stat Exams 11/16/22 07:25 Completed Pending at discharge Category Date Time Status XR KUB portable [id number] Routine Exams 11/16/22 16:35 Taken Basic Metabolic Panel AM LABS Lab 11/17/22 04:00 Ordered Magnesium AM LABS Lab 11/17/22 04:00 Ordered Urinalysis Stat Lab 11/16/22 07:25 Uncollected CV. echo complete* [id number] Routine Ultrasound 11/17/22 06:00 Ordered Radiology Impressions Chest X-Ray 11/16/22 07:25 Impression: No change in cardiomegaly and bibasilar opacities. Laboratory Results WBC 7.2 10^3/uL (4.0-10.0) 11/16/22 07:50 RBC 4.06 10^6/uL (4.1-5.3) L 11/16/22 07:50 Hgb 11.1 g/dL (11.5-15.3) L 11/16/22 07:50 Hct 36.0 % (37.0-47.0) L 11/16/22 07:50 MCV 88.7 fl (81-99) 11/16/22 07:50 MCH 27.3 pg (28.0-34.0) L 11/16/22 07:50 MCHC 30.8 g/dL (30.0-36.0) 11/16/22 07:50 RDW 14.0 % (12.1-15.1) 11/16/22 07:50 Plt Count 297 10^3/cmm (130-400) 11/16/22 07:50 MPV 9.7 fL (7.4-10.4) 11/16/22 07:50 Neut % (Auto) 84.0 % 11/16/22 07:50 Lymph % (Auto) 9.9 % 11/16/22 07:50 [place] % (Auto) 3.9 % 11/16/22 07:50 Eos % (Auto) 1.0 % 11/16/22 07:50 Baso % (Auto) 0.8 % 11/16/22 07:50 Neut # (Auto) 6.00 10^3/uL (1.8-7.7) 11/16/22 07:50 Lymph # (Auto) 0.7 10^3/uL (0.8-4.8) L 11/16/22 07:50 [place] # (Auto) 0.3 10^3/uL (0.2-0.9) 11/16/22 07:50 Eos # (Auto) 0.1 10^3/uL (0.0-0.8) 11/16/22 07:50 Baso # (Auto) 0.1 10^3/uL (0.0-0.1) 11/16/22 07:50 Nucleated RBC % (auto) 0 % 11/16/22 07:50 Nucleated RBCs # 0.0 /100WBC 11/16/22 07:50 Sodium 145 mmol/L (136-145) 11/16/22 07:50 Potassium 3.9 mmol/L (3.5-5.1) 11/16/22 07:50 Chloride 107 mmol/L (98-107) 11/16/22 07:50 Carbon Dioxide 27 mmol/L (22-29) 11/16/22 07:50 Anion Gap 14.9 (5-19) 11/16/22 07:50 BUN 22 mg/dL (6-20) H 11/16/22 07:50 Creatinine 1.7 mg/dL (0.5-0.9) H 11/16/22 07:50 GFR Calculation 31.2 mL/min (90-130) L 11/16/22 07:50 Glucose 77 mg/dL (65-115) 11/16/22 07:50 POC Glucose 122 mg/dL (70-110) H 11/16/22 18:37 Estimat Average Glucose 108 11/16/22 07:50 Hemoglobin A1c 5.4 % (4.0-6.0) 11/16/22 07:50 Calculated Osmolality 302 mOsm/kg (285-295) H 11/16/22 07:50 Calcium 9.4 mg/dL (8.5-10.5) 11/16/22 07:50 Total Bilirubin 0.4 mg/dL (0.15-1.2) 11/16/22 07:50 AST 18 U/L (0-32) 11/16/22 07:50 ALT 14 U/L (0-33) 11/16/22 07:50 Alkaline Phosphatase 117 U/L (35-105) H 11/16/22 07:50 NT-Pro-B Natriuret Pep 3140 pg/mL (0-125) H 11/16/22 17:20 Total Protein 6.8 g/dL (6.6-8.7) 11/16/22 07:50 Albumin 3.0 g/dL (3.5-5.2) L 11/16/22 07:50 Globulin 3.8 g/dL (1.3-4.6) 11/16/22 07:50 TSH 2.96 uIU/mL (0.27-4.20) 11/16/22 07:50 Vitals Last Vital Signs Temp 96.9 F L 11/16/22 06:43 Pulse 81 11/16/22 06:43 BP 160/65 11/16/22 12:27 Pulse Ox 96 11/16/22 12:27 O2 Del Method 11/16/22 14:54 Discharge Plan Discharge Patient Disposition: Home Condition: Stable Prescriptions: New hydralazine 10 mg Tablet 10 mg PO TID Qty: 90 2RF metoprolol tartrate 25 mg Tablet 25 mg PO BID@0900,2100 Qty: 60 3RF amlodipine 5 mg tablet 5 mg PO DAILY Qty: 30 2RF sitagliptin phosphate 25 mg tablet 25 mg PO DAILY Qty: 30 1RF Continued potassium chloride 20 mEq tablet extended release 20 meq PO DAILY Qty: 30 0RF metoclopramide HCl [Reglan] 10 mg tablet 10 mg PO Q6H PRN (Reason: nausea and vomiting) Qty: 20 0RF levothyroxine 50 mcg tablet 50 mcg PO DAILY furosemide 20 mg tablet 20 mg PO DAILY Qty: 60 2RF Discontinued lisinopril 10 mg tablet 10 mg PO DAILY Qty: 90 0RF Lantus U-100 Insulin 100 unit/mL solution See Rx Instructions .ROUTE .COMPLEX Qty: 20 3RF Dose Instruction: inject 35 UNITS SUBCUTANEOUSLY TWICE DAILY Rx Instructions: inject 35 UNITS SUBCUTANEOUSLY TWICE DAILY No Action (DME) insulin syringe-needle U-100 [BD Insulin Syringe] 0.5 mL 29 gauge x 1/2 syringe See Rx Instructions .Route Qty: 100 1RF Rx Instructions: As directed (DME) diabetic supplies, miscellan. Misc See Rx Instructions .Route Qty: 1 0RF Rx Instructions: As directed - glucometer, 120 strips, 120 lancets Discharge Orders: Discharge Order (Routine); Ordered 11/17/22 Ordered By: Everardo Mcdonald Referrals: Ramandeep Biggs FNP [Primary Care Provider] - Rubne Gonzalez MD [Physician] - 2 weeks Patient Instructions: Opioid Safety Discharge Attestations Time Spent in Discharge Care*: less than 30 min Quality Metrics Clinical Quality Measures [ No reported AMI, CVA or VTE this stay] Coding Level of Care Code Acute Code for Chg Fwd Diagnoses Hypoglycemia associated with diabetes E11.649 Anemia D64.9 CKD (chronic kidney disease) N18.9 Anemia D64.9 Renal insufficiency N28.9 Fatigue R53.83 Chronic headaches R51.9; G89.29
[2022-11-17 07:27] VITALS: BP 143/83; PULSE 65; RESP 16; TEMP 36.6; O2SAT 93
--- NOTE | 2022-11-17 08:30 | PC.NURSE ---
DISCUSSED DISCHARGING TODAY WITH PATIENT. PATIENT VERBALIZED UNDERSTANDING AND STATED THAT HER RIDE WILL NOT BE AVAILABLE TO PICK HER UP UNTIL 1600.
[2022-11-17] MEDS: metoprolol tartrate 25 mg Tablet PO (09:01)
[2022-11-17] MEDS: lisinopril 10 mg Tablet PO (09:02)
[2022-11-17] MEDS: FUROsemide 20 mg Tablet PO (09:02)
[2022-11-17] MEDS: hyDRALAzine 10 mg Tablet PO ×2 (09:02→15:33)
[2022-11-17] MEDS: levothyroxine 50 mcg Tablet PO (09:02)
[2022-11-17] MEDS: potassium chloride ER 20 mEq Tablet PO (09:02)
[2022-11-17 11:12] LABS: Glucose Point of Care 160 mg/dL (70-110)
[2022-11-17 11:33] VITALS: BP 141/83; PULSE 63; RESP 16; TEMP 36.8; O2SAT 96
--- NOTE | 2022-11-17 14:52 | PC.SOCIAL ---
Medication cost Nurse called and spoke to BART about the ventura of Junuvia, patient cant afford. BART informed her that her PCP is a 340B doctor and she can try to go through her PCP, or we could try and have doctor change it to a different medication. Explained that it was showing around $560 on good rx so that wouldnt help any.
[2022-11-17 15:00] VITALS: BP 142/67; PULSE 60; RESP 16; TEMP 36.9; O2SAT 93
[2022-11-17 16:25] LABS: Glucose Point of Care 147 mg/dL (70-110)
[2022-11-17 18:42] VITALS: BP 142/67; PULSE 60; RESP 16; TEMP 36.9; O2SAT 93
== END 2022-11-17 17:50 | disposition home or self-care (01) ==
LOC: ER 12:10 → MEDSURG 14:57
PROVIDERS: Admitting Provider Internal Medicine; Emergency Provider Family Medicine; PCP Nurse Practitioner Family; Visit Provider Internal Medicine
DX: E11.22 Type 2 diabetes mellitus with diabetic chronic kidney disease (principal); E11.649 Type 2 diabetes mellitus with hypoglycemia without coma; N18.9 Chronic kidney disease, unspecified; E78.5 Hyperlipidemia, unspecified; E03.9 Hypothyroidism, unspecified; D63.1 Anemia in chronic kidney disease; R53.83 Other fatigue; R51.9 Headache, unspecified; I50.31 Acute diastolic (congestive) heart failure
CPT/HCPCS: 36415; 36416; 71045; 74018; 80048; 80053; 81001; 82962; 83036; 83735; 83880; 84443; 85025; 93005; 93306; 96361; 96374; 96375; 99285; G0378; J1610; J3490

== ENCOUNTER → 2022-12-04 09:41 | Outpatient (BNVA) | payer MEDICARE, SELFPAY | PROVIDERS: PCP Nurse Practitioner Family; Visit Provider Nurse Practitioner Family | DX: E11.29 Type 2 diabetes mellitus with other diabetic kidney complication (principal); N18.32 Chronic kidney disease, stage 3b | CPT/HCPCS: 80069; 82043; 82542; 85025 ==

== ENCOUNTER → 2023-01-16 09:24 | Outpatient (BNVA) | payer MEDICARE, SELFPAY | PROVIDERS: PCP Nurse Practitioner Family; Visit Provider Registered Nurse | DX: N18.32 Chronic kidney disease, stage 3b (principal) | CPT/HCPCS: 80053; 81000; 82310; 82570; 83970; 84156; 85025 ==

== ENCOUNTER → 2023-04-23 09:11 | Outpatient (BNVA) | payer MEDICARE, SELFPAY | PROVIDERS: PCP Nurse Practitioner Family; Visit Provider Nurse Practitioner Family | DX: I96 Gangrene, not elsewhere classified (principal); L98.492 Non-pressure chronic ulcer of skin of other sites with fat layer exposed; N76.2 Acute vulvitis | CPT/HCPCS: 97597; 99213; A6197 ==

== ENCOUNTER → 2023-04-30 09:01 | Outpatient (BNVA) | payer MEDICARE, SELFPAY | PROVIDERS: PCP Nurse Practitioner Family; Visit Provider Nurse Practitioner Family | DX: I96 Gangrene, not elsewhere classified (principal); L98.492 Non-pressure chronic ulcer of skin of other sites with fat layer exposed; N76.2 Acute vulvitis | CPT/HCPCS: 97597; A6197 ==

== ENCOUNTER → 2023-05-07 10:48 | Outpatient (BNVA) | payer MEDICARE, SELFPAY | PROVIDERS: PCP Nurse Practitioner Family; Visit Provider Nurse Practitioner Family | DX: I96 Gangrene, not elsewhere classified (principal); L98.492 Non-pressure chronic ulcer of skin of other sites with fat layer exposed; N76.2 Acute vulvitis | CPT/HCPCS: 97597; 99212; A6197 ==

== ENCOUNTER → 2023-05-14 10:37 | Outpatient (BNVA) | payer MEDICARE, SELFPAY | PROVIDERS: PCP Nurse Practitioner Family; Visit Provider Nurse Practitioner Family | DX: L98.492 Non-pressure chronic ulcer of skin of other sites with fat layer exposed (principal); N76.2 Acute vulvitis; E03.9 Hypothyroidism, unspecified; D64.9 Anemia, unspecified | CPT/HCPCS: 80053; 84439; 84443; 84481; 85025; 97597; A6021 ==

== ENCOUNTER → 2023-05-21 10:52 | Outpatient (BNVA) | payer MEDICARE, SELFPAY | PROVIDERS: PCP Nurse Practitioner Family; Visit Provider Nurse Practitioner Family | DX: Z09 Encounter for follow-up examination after completed treatment for conditions other than malignant neoplasm (principal) | CPT/HCPCS: 99212 ==

== ENCOUNTER → 2023-10-18 11:22 | Outpatient (BNVA) | payer MEDICARE, SELFPAY | PROVIDERS: PCP Nurse Practitioner Family; Visit Provider Nurse Practitioner Family | DX: E11.9 Type 2 diabetes mellitus without complications (principal); I10 Essential (primary) hypertension; E05.90 Thyrotoxicosis, unspecified without thyrotoxic crisis or storm; R53.83 Other fatigue | CPT/HCPCS: 80053; 80061; 83036; 84443; 85025 ==

== ENCOUNTER → 2023-12-04 14:51 | Outpatient (BNVA) | payer MEDICARE, SELFPAY | PROVIDERS: PCP Nurse Practitioner Family; Visit Provider Nurse Practitioner Family | DX: R39.9 Unspecified symptoms and signs involving the genitourinary system (principal) | CPT/HCPCS: 81000; 87077; 87086; 87184 ==

== ENCOUNTER → 2023-12-20 08:16 | Outpatient (BNVA) | payer MEDICARE, SELFPAY | PROVIDERS: PCP Nurse Practitioner Family; Visit Provider Nurse Practitioner Family | DX: N39.0 Urinary tract infection, site not specified (principal) | CPT/HCPCS: 81003; 87086 ==

== ENCOUNTER → 2024-02-26 09:34 | Outpatient (BNVA) | payer MEDICARE, SELFPAY | PROVIDERS: PCP Nurse Practitioner Family; Visit Provider Nurse Practitioner Family | DX: Z01.419 Encounter for gynecological examination (general) (routine) without abnormal findings (principal); I10 Essential (primary) hypertension; Z79.4 Long term (current) use of insulin; E11.21 Type 2 diabetes mellitus with diabetic nephropathy; Z79.899 Other long term (current) drug therapy | CPT/HCPCS: 80053; 83036; 84443; 87070; 87205; 87624 ==

== ENCOUNTER 2024-03-13 11:06 | Outpatient (CLI) | payer MEDICARE, SELFPAY ==
--- NOTE | 2024-03-13 11:30 | MM_ITS ---
WS: [id number] BILATERAL 3D TOMOSYNTHESIS DIGITAL SCREENING MAMMOGRAPHY WITH CAD CLINICAL INFORMATION: Z12.39 - Encounter for other screening for malignant neop... HISTORY: Screening mammogram. No current complaints. COMPARISON: 2010 TECHNIQUE: Bilateral CC and MLO views. FINDINGS: Scattered fibroglandular densities bilaterally. No suspicious focal mass, asymmetry, calcifications, or architectural distortion. No evidence of malignancy. Few incidental punctate and lucent centered c alcifications. Vascular calcifications. MM/[place] [id number] IMPRESSION: BI-RADS: 2-Benign FOLLOW UP: 1 Year Follow-up Recommend return to annual screening mammography.
== END 2024-03-13 11:07 | disposition home or self-care (01) ==
LOC: RAD 11:07
PROVIDERS: PCP Nurse Practitioner Family; Visit Provider Nurse Practitioner Family
DX: Z12.39 Encounter for other screening for malignant neoplasm of breast (principal); R92.323 Mammographic fibroglandular density, bilateral breasts; R92.1 Mammographic calcification found on diagnostic imaging of breast
CPT/HCPCS: 77063; 77067

== ENCOUNTER → 2024-04-22 07:19 | Outpatient (BNVA) | payer MEDICARE, SELFPAY | PROVIDERS: PCP Nurse Practitioner Family; Visit Provider Nurse Practitioner Family | DX: R19.7 Diarrhea, unspecified (principal); R11.2 Nausea with vomiting, unspecified | CPT/HCPCS: 81000 ==

== ENCOUNTER 2024-07-14 15:05 | Outpatient (CLI) | payer MEDICARE, SELFPAY ==
--- NOTE | 2024-07-14 15:18 | XRR_ITS ---
PROCEDURE INFORMATION: Exam: XR Left Shoulder Exam date and time: 07/14/2024 3:22 PM Age: 58 years old Clinical indication: Bilateral; Patient HX: Pain in lower back and shoulders after multiple falls over last year, shoulders after trying to catch self; Additional info: M25.519 - pain in unspecified shoulder TECHNIQUE: Imaging protocol: Radiologic exam of the left shoulder. Views: 2 or more views. COMPARISON: CR XR chest 1V portable [id number] 11/16/2022 7:51 AM FINDINGS: Tubes, catheters and devices: Right internal jugular vein tunneled dialysis catheter is in position. Bones/joints: Visualized ribs are unremarkable. Lungs: Visualized lungs are unremarkable. Soft tissues: Normal. XR/XR shoulder LT min 2V* [id number] IMPRESSION: No acute findings.
--- NOTE | 2024-07-14 15:18 | XRR_ITS ---
PROCEDURE INFORMATION: Exam: XR Right Shoulder Exam date and time: 07/14/2024 3:22 PM Age: 58 years old Clinical indication: Bilateral; Patient HX: Pain in lower back and shoulders after multiple falls over last year, shoulders after trying to catch self; Additional info: M25.519 - pain in unspecified shoulder TECHNIQUE: Imaging protocol: Radiologic exam of the right shoulder. Views: 2 or more views. COMPARISON: CR XR chest 1V portable [id number] 11/16/2022 7:51 AM FINDINGS: Tubes, catheters and devices: right internal jugular vein tunneled dialysis catheter is in position, tip terminates in the right atrium. Bones/joints: No acute osseous abnormality. Visualized ribs are unremarkable. Lungs: Visualized lungs are unremarkable. Soft tissues: Normal. XR/XR shoulder RT min 2V* [id number] IMPRESSION: No acute findings.
--- NOTE | 2024-07-14 15:18 | XRR_ITS ---
PROCEDURE INFORMATION: Exam: XR Lumbosacral Spine Exam date and time: 07/14/2024 3:22 PM Age: 58 years old Clinical indication: Low back pain; Patient HX: Pain in lower back and shoulders after multiple falls over last year, shoulders after trying to catch self; Additional info: M54.50 - low back pain, unspecified TECHNIQUE: Imaging protocol: Radiologic exam of the lumbosacral spine. Views: 2 or 3 views. COMPARISON: CR XR KUB portable [id number] 11/16/2022 4:57 PM FINDINGS: Bones/joints: No acute osseous abnormality. 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 Soft tissues: Unremarkable. Organs: Post cholecystectomy. XR/XR lumbar spine 2-3V* [id number] IMPRESSION: No acute findings.
== END 2024-07-14 15:06 | disposition home or self-care (01) ==
LOC: RAD 15:06
PROVIDERS: PCP Nurse Practitioner Family; Visit Provider Nurse Practitioner Family
DX: M51.360 Other intervertebral disc degeneration, lumbar region with discogenic back pain only (principal); M25.519 Pain in unspecified shoulder; Z90.49 Acquired absence of other specified parts of digestive tract
CPT/HCPCS: 72100; 73030

== ENCOUNTER → 2024-12-15 11:15 | Outpatient (BNVA) | payer MEDICARE, SELFPAY | PROVIDERS: PCP Nurse Practitioner Family; Visit Provider Nurse Practitioner Family | DX: R53.83 Other fatigue (principal); I10 Essential (primary) hypertension; Z79.4 Long term (current) use of insulin; E11.21 Type 2 diabetes mellitus with diabetic nephropathy; E03.9 Hypothyroidism, unspecified | CPT/HCPCS: 80053; 80061; 83036; 84443; 85025 ==

== ENCOUNTER → 2025-04-01 08:10 | Outpatient (BNVA) | payer MEDICARE, SELFPAY | PROVIDERS: PCP Nurse Practitioner Family; Visit Provider Nurse Practitioner Family | DX: I10 Essential (primary) hypertension (principal); Z79.4 Long term (current) use of insulin; E11.21 Type 2 diabetes mellitus with diabetic nephropathy; R53.83 Other fatigue | CPT/HCPCS: 80053; 80061; 83036; 84443; 85025 ==

== ENCOUNTER 2025-04-15 09:20 | Outpatient (CLI) | payer MEDICARE, SELFPAY ==
--- NOTE | 2025-04-15 09:30 | US_ITS ---
WS: [id number] ULTRASOUND SOFT TISSUES mid RIGHT back. HISTORY: R22.2 - Localized swelling, mass and lump, trunk COMPARISON: None available. TECHNIQUE: 2-D and color Doppler imaging is submitted. Area of clinical concern along the RIGHT paraspinal soft tissues corresponds to two hyperechoic ill-defined masses in the paraspinal muscles. The largest area of concern measures 2.6 x 2.0 x 1.1 cm. There is an additional smaller similar area measuring 0.7 x 0.9 x 0.4 cm in the same location. Both of these are very nonspecific. No increased vascularity. US/US soft tissue/extremity [id number] IMPRESSION: There are 2 adjacent hyperechoic masses in the RIGHT paraspinal soft tissues. D ifferential includes lipomas and areas of fat necrosis.
== END 2025-04-15 09:21 | disposition home or self-care (01) ==
LOC: RAD 09:22
PROVIDERS: PCP Nurse Practitioner Family; Visit Provider Nurse Practitioner Family
DX: R22.2 Localized swelling, mass and lump, trunk (principal)
CPT/HCPCS: 76882

== ENCOUNTER → 2025-05-19 14:35 | Outpatient (BNVA) | payer MEDICARE, SELFPAY | PROVIDERS: PCP Nurse Practitioner Family; Visit Provider Nurse Practitioner Family | DX: R68.89 Other general symptoms and signs (principal); Z11.52 Encounter for screening for COVID-19 | CPT/HCPCS: 87400; 87426 ==

== ENCOUNTER → 2025-06-22 09:08 | Outpatient (BNVA) | payer MEDICARE, SELFPAY | PROVIDERS: PCP Nurse Practitioner Family; Visit Provider Surgery | DX: D17.1 Benign lipomatous neoplasm of skin and subcutaneous tissue of trunk (principal) | CPT/HCPCS: 99204 ==